=== PATIENT | female | born 1965 | race Caucasian/White ===

== ENCOUNTER → 2016-05-11 | Outpatient (CLI) | payer BC ==
[~2016-05-11] MED LIST: ATOR-22 PO; CHOL2000 PO; GLIM2TAB2 PO; HYDR12.55 PO; LEVO150T9 PO; PRLSR20 PO
[2016-05-12 08:04] LABS: ESTIMATED AVERAGE GLUCOSE 143 mg/dl; HA1C FLAG Normal (Normal)
== END | disposition home or self-care (01) ==
LOC: C.LAB 17:55
PROVIDERS: ATTEND Internal Medicine
DX: E11.9 Type 2 diabetes mellitus without complications (principal)

== ENCOUNTER → 2016-07-16 | Outpatient (CLI) | payer BC ==
[2016-07-16 17:11] LABS: THYROID STIMULATING HORMONE 0.018 uIu/ml (0.300-4.500)
== END | disposition home or self-care (01) ==
LOC: C.LAB1850 15:36
PROVIDERS: ATTEND Internal Medicine Endocrinology, Diabetes & Metabolism
DX: E03.9 Hypothyroidism, unspecified (principal)

== ENCOUNTER → 2016-11-21 | Outpatient (CLI) | payer BC ==
[2016-11-21 12:51] LABS: ALT/SGPT 56 U/L (12-78); AST/SGOT 26 U/L (15-37); BLOOD UREA NITROGEN 10 mg/dl (7-18); BUN/CREATININE RATIO 11.4 (10-20); CALCIUM 9.4 mg/dl (8.5-10.1); CARBON DIOXIDE 25 mmol/L (21-32); CHLORIDE 101 mmol/L (98-107); CHOLESTEROL 154 mg/dl (0-200); CREATININE 0.85 mg/dl (0.60-1.20); GLUCOSE 383 mg/dl (70-99); POTASSIUM 3.8 mmol/L (3.5-5.1); SODIUM 135 mmol/L (136-145); TRIGLYCERIDES 267 mg/dl (0-150); VERY LOW DENSITY LIPOPROT CALC 53 mg/dl
[2016-11-21 12:59] LABS: ALB/GLOB RATIO 0.9 (0.9-2); ALKALINE PHOSPHATASE 178 U/L (45-117); CHOLESTEROL/HDL RATIO 5.1; HDL CHOLESTEROL 30 mg/dl; LDL CHOLESTEROL CALCULATED 71 mg/dl; THYROID STIMULATING HORMONE 0.022 uIu/ml (0.300-4.500)
[2016-11-21 13:01] LABS: BETA-HYDROXYBUTYRATE 1.12 mg/dL (0.2-2.81)
== END | disposition home or self-care (01) ==
LOC: C.LAB 11:18
PROVIDERS: ATTEND Internal Medicine Endocrinology, Diabetes & Metabolism
DX: E55.9 Vitamin D deficiency, unspecified (principal); E78.00 Pure hypercholesterolemia, unspecified; E11.9 Type 2 diabetes mellitus without complications; E03.9 Hypothyroidism, unspecified

== ENCOUNTER → 2016-12-14 | Outpatient (CLI) | payer BC ==
--- NOTE | 2016-12-14 14:30 | DIAGNOSTIC IMAGING REPORT ---
MRI LUMBAR SPINE W/O CONTRAST CLINICAL HISTORY: LUMBAR STENOSIS TECHNIQUE: Sagittal and axial T1, T2 and STIR images were obtained. COMPARISON STUDY: No previous studies for comparison. OBSERVATIONS: The vertebral bodies and posterior elements appear intact. There is no abnormal bony signal present to suggest a marrow replacement process. L1-2: No disc protrusions or extrusions. No evidence of spinal canal or neural foraminal compromise. L2-3: There is a tiny broad-based central disc protrusion. There is no significant spinal or foraminal stenosis L3-4: There is a mild circumferential disc bulge. There is slight flattening of the anterior aspect the thecal sac. Significant spinal stenosis is not felt to be present. There is no foraminal narrowing L4-5: There is a mild circumferential disc bulge. There is mild facet joint arthropathy. There is no significant spinal or foraminal stenosis. L5-S1: There are no focal disc herniations. There is facet joint arthropathy. There is no significant spinal or foraminal stenosis. The conus medullaris and cauda equina appear normal. IMPRESSION: Mild multilevel spondylitic changes. Tiny broad-based central disc protrusion at the L2-3 level. Mild multilevel disc bulges. L4-5 and L5-S1 facet joint arthropathy. Significant spinal or foraminal stenosis is not felt to be present. Electronically signed by: Gavin Catalan M.D. 12/14/2016 2:29 PM Dictated Date/Time: 12/14/2016 2:25 PM
== END | disposition home or self-care (01) ==
LOC: C.MRIBC 13:28
PROVIDERS: ATTEND Pain Medicine Interventional Pain Medicine
DX: M51.86 Other intervertebral disc disorders, lumbar region (principal)

== ENCOUNTER → 2017-04-26 | Outpatient (CLI) | payer OTHER | END | disposition home or self-care (01) | LOC: C.NEUR 14:44 | PROVIDERS: ATTEND Internal Medicine Pulmonary Disease | DX: R23.2 Flushing (principal) ==

== ENCOUNTER → 2017-06-18 | Outpatient (CLI) | payer OTHER ==
--- NOTE | 2017-06-18 12:50 | DIAGNOSTIC IMAGING REPORT ---
THYROID ULTRASOUND CLINICAL HISTORY: HYPOTHYROIDISM COMPARISON STUDY: None. TECHNIQUE: Sonography of the thyroid gland was performed. FINDINGS: The thyroid gland is diminutive and heterogeneous. The right lobe measures 2.6 x 1.1 x 1.1 cm left lobe measures 2.9 x 1.2 x 1.3 cm. Note is made of an 8 mm hypoechoic left isthmus junction nodule. IMPRESSION: 1. Diminutive, heterogeneous thyroid gland. 2. 8 mm hypoechoic left isthmus junction nodule which does not meet criteria for biopsy. Electronically signed by: Cyril Dow M.D. 06/18/2017 12:49 PM Dictated Date/Time: 06/18/2017 12:47 PM
== END | disposition home or self-care (01) ==
LOC: C.ULTR 12:05
PROVIDERS: ATTEND Internal Medicine Endocrinology, Diabetes & Metabolism
DX: E03.9 Hypothyroidism, unspecified (principal)

== ENCOUNTER → 2017-06-29 | Outpatient (CLI) | payer OTHER ==
--- NOTE | 2017-06-29 15:05 | MAMMOGRAPHY REPORT ---
BILATERAL DIGITAL SCREENING MAMMOGRAM TOMOSYNTHESIS WITH CAD: 06/29/2017 CLINICAL HISTORY: Routine screening. Patient has no complaints. TECHNIQUE: Breast tomosynthesis in addition to standard 2D mammography was performed. Current study was also evaluated with a Computer Aided Detection (CAD) system. COMPARISON: Comparison is made to exams dated: 11/27/2015 mammogram, 11/21/2014 mammogram, 05/18/2014 m ammogram, 11/13/2013 mammogram, 11/13/2013 ultrasound, and 10/26/2013 mammogram - [facility]. BREAST COMPOSITION: There are scattered areas of fibroglandular density in both breasts. FINDINGS: There are a few scattered benign-appearing calcifications. No suspicious mass, architectur al distortion or cluster of microcalcifications is seen. IMPRESSION: ACR BI-RADS CATEGORY 1: NEGATIVE There is no mammographic evidence of malignancy. A 1 year screening mammogram is recommended. The pa tient will receive written notification of the results. Approximately 10% of breast cancers are not detected with mammography. A negative mammographic report should not delay biopsy if a clinically suggestive mass is present. Marcela Field M.D. ay/:06/29/2017 08:49:10 Flat Examiner: Chan Meeks, M, [facility] letter sent: Normal 1/2 BI-RADS Code: ACR BI-RADS Category 1: Negative
== END | disposition home or self-care (01) ==
LOC: C.MAMM 07:10
PROVIDERS: ATTEND Family Medicine
DX: Z12.31 Encounter for screening mammogram for malignant neoplasm of breast (principal)

== ENCOUNTER 2019-03-13 04:48 | Inpatient (IN) ==
--- NOTE | 2019-02-10 09:39 | PAT Medication Instructions ---
Medication Instructions Date of Service February 10, 2019 Home Medications Medication Instructions Recorded omeprazole 20 mg capsule,delayed 20 mg PO BID #180 cap 10/25/18 release omeprazole 20 mg capsule,delayed release 20 mg PO BID cholecalciferol (vitamin D3) 5,000 unit capsule 5,000 units PO QAM cyanocobalamin (vitamin B-12) 500 mcg disintegrating tablet,sublingual 500 mcg SL QAM dulaglutide 1.5 mg/0.5 mL subcutaneous pen injector 1.5 mg SUBCUT WEEKLY levothyroxine 125 mcg tablet 125 mcg PO QAM omega-3 acid ethyl esters 1 gram capsule 1 cap PO DAILY atorvastatin 20 mg PO HS conjugated estrogens [Premarin] 0.625 mg PO QAM hydrochlorothiazide 12.5 mg PO QAM meclizine 12.5 mg PO UD PRN metformin 1,000 mg PO BID Continue as directed dulaglutide 1.5 mg/0.5 mL subcutaneous pen injector 1.5 mg SUBCUT WEEKLY ASK your prescriber and surgeon conjugated estrogens [Premarin] 0.625 mg PO QAM STOP taking 2 weeks before surgery (or as soon as possible if surgery is within 2 weeks) omega-3 acid ethyl esters 1 gram capsule 1 cap PO DAILY DO NOT take the morning of surgery cholecalciferol (vitamin D3) 5,000 unit capsule 5,000 units PO QAM cyanocobalamin (vitamin B-12) 500 mcg disintegrating tablet,sublingual 500 mcg SL QAM hydrochlorothiazide 12.5 mg PO QAM metformin 1,000 mg PO BID Take morning of surgery With a small sip of water, OTHERWISE NOTHING TO EAT OR DRINK AFTER MIDNIGHT: omeprazole 20 mg capsule,delayed release 20 mg PO BID levothyroxine 125 mcg tablet 125 mcg PO QAM meclizine 12.5 mg PO UD PRN (if needed) Take evening before surgery omeprazole 20 mg capsule,delayed release 20 mg PO BID atorvastatin 20 mg PO HS meclizine 12.5 mg PO UD PRN (if needed) metformin 1,000 mg PO BID Other Notes If you have any questions please call us at [phone] or [phone] or [phone] or [phone]
--- NOTE | 2019-02-13 09:22 | Anesthesiology Consultation ---
Date of Service February 13, 2019 Assessment & Plan (1) Encounter for pre-operative examination: - Awaiting review of preop testing (labs, EKG, CXR). - Check BSG AM DOS Chart Review Chart Review: Patient seen in Pre Admission Testing Teaching & Discussion Pre-Anesthesia Teaching/Discussion Notes: Instructed NPO after midnight before surgery,except medications with 15 cc of water. Medication instructions provided according to the PAT guidelines. History Surgery Operation Date: 03/13/19 09:40 Proposed Procedures p Left Total Hip Arthroplasty - Jonathan Coello Height/Weight Height: 5 ft 8 in Weight: 104 kg Allergies Allergy/AdvReac Type Severity Reaction Status Date / Time Penicillins Allergy Intermediate RASH Verified 02/03/19 09:46 Medications Home Medications Medication Instructions Recorded Confirmed Last Taken omeprazole 20 mg capsule,delayed 20 mg PO BID #180 cap 10/25/18 02/03/19 02/03/19 release cholecalciferol (vitamin D3) 5,000 5,000 units PO QAM cap 11/16/18 02/03/19 Unknown unit capsule cyanocobalamin (vitamin B-12) 500 500 mcg SL QAM tab 11/16/18 02/03/19 02/03/19 mcg disintegrating tablet,sublingual dulaglutide 1.5 mg/0.5 mL 1.5 mg SUBCUT WEEKLY #1 ml 11/16/18 02/03/19 Unknown subcutaneous pen injector levothyroxine 125 mcg tablet 125 mcg PO QAM #90 tab 11/16/18 02/03/19 02/03/19 omega-3 acid ethyl esters 1 gram 1 cap PO DAILY #90 cap 11/16/18 02/03/19 Unknown capsule atorvastatin 20 mg PO HS 02/03/19 02/03/19 02/02/19 conjugated estrogens [Premarin] 0.625 mg PO QAM 02/03/19 02/03/19 02/03/19 hydrochlorothiazide 12.5 mg PO QAM 02/03/19 02/03/19 02/03/19 meclizine 12.5 mg PO UD PRN 02/03/19 02/03/19 Unknown metformin 1,000 mg PO BID 02/03/19 02/03/19 02/03/19 Past Medical History Medical History Acid reflux controlled Diabetes NIDDM (oral + injectable) Hypercholesterolemia (Chronic) Hypothyroidism (Inactive) Obesity Osteoarthrosis (Acute) Sleep apnea (Acute) "mild"/no device Thyroid nodule (Acute) under surveillance Exercise / Class Metabolic Activity III < 4 Walking/Shop/Light housework Past Family History Family History Brother Myocardial infarction, Onset Age: 37 at age 37 Mother Myocardial infarction Grandfather (Maternal) Myocardial infarction Aunt Myocardial infarction Uncle Myocardial infarction Past Surgical History Surgical History History of bladder surgery TAC WITH MESH History of colonoscopy History of left knee surgery History of partial hysterectomy OVARIES REMAIN History of tonsillectomy History of total right hip replacement Past Anesthesia History No Hx of Anesthesia Complications and No Family Hx of Anesthesia Complications History of PONV No Hx of PONV and No Hx of Motion Sickness Social History Smoking Status: Former smoker Do You Dip or Chew Tobacco: No Smoking End Date: QUIT 10 YR AGO Hx Alcohol Use: Yes alcohol intake frequency: holidays/special occasions only Hx Substance Use: No substance use type: does not use Review of Systems Patient denies chest pain, shortness of breath, dyspnea on exertion, joint pain, reflux, cough, wheezing, palpitations. Physical Exam Vital Signs VITALS BP 135/89 P 99 TEMP 98.6 SP02 95%RA RESP 16 PHYSICAL Full neck and c-spine range of motion. Full TMJ range of motion. TMD 3 finger breaths Mallampati Score 3 Dentition: intact, crowns several on molars Lungs: clear throughout to auscultation Cardiac: regular rate and rhythm, no murmurs noted Spine: normal Carotid arteries: negative bruit Extremities: no edema Testing Laboratory Results 11/14/18 HGBA1C 5.4%
[2019-02-13 10:01] LABS: Basophils # (auto) 0.01 K/uL (0-0.2); Basophils % (auto) 0.2 %; Eosinophils # (auto) 0.05 K/uL (0-0.5); Eosinophils % (auto) 0.8 %; Hemoglobin 13.3 g/dL (12.0-16.0); Immature Granulocytes # (auto) 0.01 K/uL (0.00-0.02); Immature Granulocytes % (auto) 0.2 %; Lymphocytes # (auto) 1.77 K/uL (1.2-3.4); Lymphocytes % (auto) 27.7 %; Mean Corpuscular Hemoglobin 30.4 pg (25-34); Mean Corpuscular Hgb Conc 33.3 g/dL (32-36); Mean Corpuscular Volume 91.5 fL (80-100); Mean Platelet Volume 9.5 fL (7.4-10.4); Monocytes # (auto) 0.43 K/uL (0.11-0.59); Monocytes % (auto) 6.7 %; Neutrophils # (auto) 4.13 K/uL (1.4-6.5); Neutrophils % (auto) 64.4 %; Platelet Count 321 K/uL (130-400); RDW Coefficient of Variation 14.4 % (11.5-14.5); RDW Standard Deviation 48.7 fL (36.4-46.3); Red Blood Count 4.37 M/uL (4.2-5.4)
[2019-02-13 10:03] LABS: Appearance Urine Clear (Clear); Bilirubin Urine Negative (Negative); Blood Urine Negative (Negative); Color Urine Yellow; Glucose Urine UA Negative (Negative); Ketones Urine Negative (Negative); Leukocyte Esterase Urine Negative (Negative); Nitrite Urine Negative (Negative); Protein Urine Negative (Negative); Specific Gravity Urine 1.008 (1.000-1.030); Urobilinogen Urine Negative (Negative); pH Urine 5.5 (4.5-7.5)
[2019-02-13 10:14] LABS: INR 0.9 (0.9-1.1); Partial Thromboplastin Ratio 0.9; Partial Thromboplastin Time 23.5 Seconds (21.0-31.0); Prothrombin Time 9.6 Seconds (9.0-12.0)
--- NOTE | 2019-02-13 10:39 | XRay Report ---
XR chest Pre-admission PA/Lat CLINICAL HISTORY: pat preoperative evaluation COMPARISON STUDY: 07/13/2013 FINDINGS: The bones soft tissues and hemidiaphragms are normal. The cardiomediastinal silhouette is n ormal. The lungs are clear. The pulmonary vasculature is normal. IMPRESSION: Negative chest. ACT 112: Negative or not required by law. The above report was generated using voice recognition software. It may contain grammatical, syntax or spelling errors. Electronically signed by: Aguila Jimenez M.D. 02/13/2019 10:38 AM
[2019-02-13 10:56] LABS: BUN Creatinine Ratio 14.3 (10-20); Calcium 10.1 mg/dl (8.5-10.1); Creatinine Clr Calc Pharmacy 89.2 ml/min; Est GFR (African American) 82.9; Est GFR (Non-African American) 71.5; Potassium 3.4 mmol/L (3.5-5.1)
[2019-02-13 10:59] LABS: Albumin Globulin Ratio 0.9 (0.9-2); Bilirubin,Total 0.2 mg/dl (0.2-1); Globulin 4.4 gm/dl (2.5-4.0); Total Protein 8.4 gm/dl (6.4-8.2)
--- NOTE | 2019-03-10 13:21 | History & Physical Report ---
Date of Service March 10, 2019 Assessment & Plan (1) Degenerative joint disease of left hip: Pt will be admitted same day, undergo left danielle. Plans on home dc next day and home pt History of Present Illness Chief Complaint: left hip pain Primary Care Provider: Shawn Esparza MD pleasant female with complaints of left hip pain for about 2 years. limping constantly, has tried nsaids and therapy without relief. Allergies Allergy/AdvReac Type Severity Reaction Status Date / Time Penicillins Allergy Intermediate RASH Verified 02/17/19 09:56 Home Medications Home Medications Medication Instructions Recorded Confirmed Type omeprazole 20 mg capsule,delayed 20 mg PO BID #180 cap 10/25/18 02/17/19 Rx release cholecalciferol (vitamin D3) 125 5,000 units PO QAM cap 11/16/18 02/17/19 History mcg (5,000 unit) capsule cyanocobalamin (vitamin B-12) 500 500 mcg SL QAM tab 11/16/18 02/17/19 History mcg disintegrating tablet,sublingual dulaglutide 1.5 mg/0.5 mL 1.5 mg SUBCUT WEEKLY #1 ml 11/16/18 02/17/19 History subcutaneous pen injector levothyroxine 125 mcg tablet 125 mcg PO QAM #90 tab 11/16/18 02/17/19 History omega-3 acid ethyl esters 1 gram 1 cap PO DAILY #90 cap 11/16/18 02/17/19 History capsule atorvastatin 20 mg PO HS 02/03/19 02/17/19 History conjugated estrogens [Premarin] 0.625 mg PO QAM 02/03/19 02/17/19 History hydrochlorothiazide 12.5 mg PO QAM 02/03/19 02/17/19 History meclizine 12.5 mg PO UD PRN 02/03/19 02/17/19 History metformin 1,000 mg PO BID 02/03/19 02/17/19 History Past Med/Surg History Medical History Acid reflux controlled Diabetes NIDDM (oral + injectable) Hypercholesterolemia (Chronic) Hypothyroidism (Inactive) Obesity Osteoarthrosis (Acute) Sleep apnea (Acute) "mild"/no device Thyroid nodule (Acute) under surveillance Surgical History History of bladder surgery TAC WITH MESH History of colonoscopy History of left knee surgery History of partial hysterectomy OVARIES REMAIN History of tonsillectomy History of total right hip replacement Family History Brother Myocardial infarction, Onset Age: 37 at age 37 Mother Myocardial infarction Grandfather (Maternal) Myocardial infarction Aunt Myocardial infarction Uncle Myocardial infarction Social History (Updated 11/18/18 @ 15:24 by Marcelina Garg) Preferred Language: Jamaican Communication Ability: Effective Vp Public Relations Required: No Beliefs That Will Affect Care: None marital status: Single Current Living Situation: Significant Other current occupational status: employed Other Information That Helps Us Care for You: No Feels Safe at Home: Yes Smoking Status: Former smoker Age Quit Using Tobacco: 43 ; Do You Dip or Chew Tobacco: No ; Smoking End Date: QUIT 10 YR AGO ; Second Hand Exposure: No ; Hx Alcohol Use: Yes Alcohol Intake Frequency: Rarely Hx Substance Use: No Dental Care, Regularly: Yes Physical Activity Frequency: Does not Exercise Seatbelt Use: always Sunscreen Use: Yes Review of Systems All systems reviewed & are unremarkable except as noted in HPI & below Physical Exam Constitutional: WD/WN, vitals as above Neck: trachea midline, no thyromegaly Respiratory: normal respiratory effort, lungs clear to auscultation Cardiovascular: RRR, no murmur, no edema Gastrointestinal (Abdomen): normal bowel sounds, soft, nontender, no hepatosplenomegaly Musculoskeletal: Hip: + limited ROM of hip and + hip ROM with crepitation
[2019-03-13] MEDS ORDERED: CeleBREX 200 MG CAP PO SCH (06:00)
[2019-03-13] MEDS ORDERED: FAMOTIDINE 20 MG TAB PO SCH (06:00)
[2019-03-13] MEDS ORDERED: TRANEXAMIC ACID 1,000 MG **IV Intra-op IV SCH (06:00)
[2019-03-13] MEDS ORDERED: dexAMETHasone 4 MG TAB PO SCH (06:00)
[2019-03-13] MEDS ORDERED: CEFAZOLIN 2000MG 2,000 MG/15 ML SYR IV SCH (06:00)
[2019-03-13] MEDS ORDERED: LR 60ML/HR IV SCH (06:00)
[2019-03-13] MEDS ORDERED: ACETAMINOPHEN 500 MG TAB PO SCH (06:00)
[2019-03-13] MEDS ORDERED: TRANEXAMIC ACID 1,000 MG **IV Pre-op IV SCH (06:00)
[2019-03-13] MEDS ORDERED: SODIUM CHLORIDE 0.9% 1,000 ML IV SCH (06:00)
[2019-03-13] MEDS ORDERED: METOCLOPRAMIDE HCL 10 MG TABLET PO SCH (06:00)
[2019-03-13] MEDS ORDERED: LR 500ML BOLUS, THEN 15ML/HR IV SCH (06:00)
[2019-03-13] MEDS ORDERED: fentaNYL citrate 100 MCG/2 ML VIAL ONE (06:29)
[2019-03-13] MEDS ORDERED: MIDAZOLAM HCL 1 MG/ML 2ML VIAL ONE (06:29)
[2019-03-13] MEDS ORDERED: BACITRACIN INJ 50,000 UNIT VIAL ONE (06:31)
[2019-03-13] MEDS ORDERED: ORTHO JOINT ANESTHETIC ONE (06:31)
[2019-03-13] MEDS ORDERED: BUPIVACAINE 0.5 % 5 MG/1 ML PF 10ML VIAL ONE (06:33)
[2019-03-13] MEDS ORDERED: CeleBREX 200 MG CAP ONE (06:42)
--- NOTE | 2019-03-13 06:45 | History & Physical Bridge Note ---
Date of Service March 13, 2019 History & Physical Bridge Note I have examined the patient, reviewed the History & Physical and in the interval since the performance of the History & Physical I have noted the following changes of clinical significance: no changes noted
[2019-03-13] MEDS ORDERED: ONDANSETRON INJ 2 MG/ML 2 ML VIAL IV PRN ×2 (07:00→09:13)
[2019-03-13] MEDS ORDERED: KETOROLAC 30 MG/ML VIAL IV PRN (07:00)
[2019-03-13] MEDS ORDERED: ATROPINE SULFATE 0.1 MG/ML 10ML SYR IV PRN (07:00)
[2019-03-13] MEDS ORDERED: HYDROmorphone INJ 1 MG/ML SYRINGE IV PRN (07:00)
[2019-03-13] MEDS ORDERED: ePHEDrine sulfate 50 MG/ML AMP IV PRN (07:00)
[2019-03-13] MEDS ORDERED: PROPOFOL IV EMULSION 10 MG/ML 20 ML VIAL IV ONE ×2 (07:11→07:18)
[2019-03-13] MEDS: ROPIVACAINE 0.5% HCL/PF 150 MG, BUPIVACAINE 0.5% MPF 30 ML, EPINEPHrine 30MG/30ML (OR U... INSTIL SCH ×2 (07:40→08:08)
--- NOTE | 2019-03-13 08:01 | Operative Report ---
Post Operative Report Pre & Post Diagnosis Operation Date: 03/13/19 07:00 Pre-Op Diagnosis: Left Hip Degnerative Joint Disease Post-Op Diagnosis: Left Hip Degnerative Joint Disease I identified the patient and participated in the time-out.: Yes Procedure Operation Date: 03/13/19 07:00 Actual Procedures p Left Total Hip Arthroplasty--Uncemented(Left) - Jonathan Coello Surgeon Jonathan Coello Deputy Sheriff Custody Salvador Cardona PA-C Estimated Blood Loss 30 Findings Consistent with Post-Op Diagnosis Specimens None Complications none Disposition Disposition: Recovery Room Description of Procedure IMPLANTS USED: Dickinson size 56 mm Trident 2 Tritanium acetabular cup, 1 acetabular screw, a 36 mm X3 elevated liner, a #4 Accolade 2 stem with a 127 neck, 36 mm +2.5 mm ceramic head. INDICATIONS: Mrs. Elizalde is a pleasant female who has unfortunately failed all forms of conservative measures. Therefore, they have has decided to undergo elective surgical intervention. All risks and benefits of the surgery were discussed with the patient and the family in entirety. PROCEDURE: The patient was brought to the operating room and properly identified by myself, anesthesia, and staff. Patient was given a spinal anesthetic and placed on the operating table with the left hip up. The hip was then prepped and draped in the standard orthopedic fashion. We made a standard posterolateral approach over the greater trochanteric area. We then dissected down to subcutaneous tissue until the fascia was identified. We incised the fascia in line with the skin incision. We then split the gluteus pinky muscles with finger dissection. We then put the Charnley retractor in place. We placed the retractor underneath the gluteus medius to expose the piriformis. The piriformis was then tagged with a tag suture and released from the insertion from the greater trochanteric area with the use of electrocautery. We then performed a T capsulotomy and the femoral head and neck were atraumatically dislocated. We then performed femoral neck osteotomy at the pre-template site. We removed the femoral head and neck without difficulty. We then placed the retractor around the acetabulum. We then began to ream the acetabulum to the appropriate size. We then impacted the cup into place and had a very good fixation within the pelvis. We then put the liner in place as well. Then using multiple size approaches from the Accolade 2 system a size ##4 fit very nicely in the proximal femur. I then put trial components in place. WE had very good range of motion, excellent stability, and excellent leg length equality. We removed the trial components and irrigated the wound. We then impacted the components in place and irrigated the wound once more. We then closed the capsule and fascia with a 0 Vicryl suture, the deep dermis with 2-0 Vicryl suture, and finally the skin with a running 3-0 Vicryl subcuticular stitch. A sterile dressing was applied. The patient was taken to the recovery room in stable condition. Due to the complex nature of the procedure, the entire surgery was performed with the operational assistance of Salvador Cardona PA-C. The health care legal assistant was under direct supervision, was involved in the actual performance of all aspects of the surgical procedure including hemostasis, tissue retraction and incision, instrument management, patient positioning, and wound closure. I attest to the content of the Intraoperative Record and any orders documented therein. Any exceptions are noted below.
--- NOTE | 2019-03-13 08:35 | Anesthesiology Progress Note ---
Date of Service March 13, 2019 Anesthesia Post Procedure Vital Signs Vital Signs: Temp Pulse Pulse Resp BP BP Pulse Ox 03/13/19 08:30 76 15 97/74 L 96 03/13/19 08:21 36.4 C L 87 12 108/65 97 03/13/19 05:19 36.7 C 84 20 147/86 H 97 Pain Intensity Left Finger: Pain Intensity: 5 Transfer of Care Handoff Completed per policy Notes Mental Status: alert / awake / arousable Patient Amnestic to Procedure: Yes Nausea / Vomiting: adequately controlled Pain: adequately controlled Airway Patency, RR, SpO2: stable & adequate BP & HR: stable & adequate Hydration State: stable & adequate Neuraxial Anesthesia: was administered and sensory block is resolving Anesthetic Complications: no major complications apparent
[2019-03-13] MEDS ORDERED: MECLIZINE 12.5 MG TAB PO PRN (09:13)
[2019-03-13] MEDS ORDERED: NALOXONE HCL 0.4 MG/1 ML VIAL/CARP IV PRN (09:13)
[2019-03-13] MEDS ORDERED: METOCLOPRAMIDE HCL INJ 5 MG/ML 2 ML VIAL IV PRN (09:13)
[2019-03-13] MEDS ORDERED: bisacodyL 10 MG SUPP PR PRN (09:13)
[2019-03-13] MEDS ORDERED: MAGNESIUM HYDROXIDE SUSP 30 ML UDC PO PRN (09:13)
[2019-03-13] MEDS: ASPIRIN 81 MG ECTAB PO SCH ×2 (10:16→21:18)
[2019-03-13] MEDS: METFORMIN HCL ER 500 MG TABCR PO SCH ×2 (10:16→21:18)
[2019-03-13] MEDS: DOCUSATE SODIUM 100 MG CAP PO SCH ×2 (10:17→21:18)
[2019-03-13] MEDS: hydroCHLOROthiazide 25 MG TAB PO SCH (10:17)
[2019-03-13] MEDS: MULTIVITAMIN TAB PO SCH (10:17)
[2019-03-13] MEDS: LEVOTHYROXINE SODIUM 125 MCG TABLET PO SCH (10:17)
[2019-03-13] MEDS: SODIUM CHLORIDE 0.9% 1000ML 1,000 ML IV SCH ×2 (10:17→20:14)
[2019-03-13] MEDS: TRAMADOL HCL 50 MG TABLET PO PRN ×3 (11:43→19:35)
[2019-03-13] MEDS: ACETAMINOPHEN 500 MG TAB PO SCH ×2 (14:06→21:19)
[2019-03-13] MEDS ORDERED: TRANEXAMIC ACID / 0.7% NACL 1,000 MG/100 ML BAG IV SCH (15:00)
[2019-03-13] MEDS: CEFAZOLIN 2000MG 2,000 MG/15 ML SYR IV SCH (18:43)
[2019-03-13] MEDS ORDERED: SENNA 8.6 MG TAB PO SCH (21:00)
[2019-03-13] MEDS ORDERED: ATORVASTATIN 20 MG TAB PO SCH (21:00)
[2019-03-13] MEDS: OXYCODONE HCL IR 5 MG TAB (IMMEDIATE RELEASE) PO PRN (22:35)
[2019-03-14] MEDS: CEFAZOLIN 2000MG 2,000 MG/15 ML SYR IV SCH (03:11)
[2019-03-14] MEDS: SODIUM CHLORIDE 0.9% 1000ML 1,000 ML IV SCH (03:15)
[2019-03-14] MEDS: ACETAMINOPHEN 500 MG TAB PO SCH (05:13)
[2019-03-14] MEDS: LEVOTHYROXINE SODIUM 125 MCG TABLET PO SCH (05:13)
[2019-03-14 05:41] LABS: Hematocrit (blood only) 30.6 % (37-47); Hemoglobin 9.9 g/dL (12.0-16.0); Immature Granulocytes # (auto) 0.03 K/uL (0.00-0.02); Immature Granulocytes % (auto) 0.3 %; Lymphocytes # (auto) 0.89 K/uL (1.2-3.4); Mean Corpuscular Hemoglobin 30.1 pg (25-34); Mean Corpuscular Hgb Conc 32.4 g/dL (32-36); Mean Platelet Volume 9.8 fL (7.4-10.4); Monocytes # (auto) 0.65 K/uL (0.11-0.59); Monocytes % (auto) 7.3 %; Neutrophils % (auto) 82.4 %; Platelet Count 290 K/uL (130-400); RDW Coefficient of Variation 14.2 % (11.5-14.5); Red Blood Count 3.29 M/uL (4.2-5.4); White Blood Count 8.87 K/uL (4.8-10.8)
[2019-03-14 06:11] LABS: BUN Creatinine Ratio 13.2 (10-20); Calcium 8.5 mg/dl (8.5-10.1); Est GFR (African American) 99.2; Est GFR (Non-African American) 85.6; Potassium 3.9 mmol/L (3.5-5.1)
[2019-03-14] MEDS: OXYCODONE HCL IR 5 MG TAB (IMMEDIATE RELEASE) PO PRN (07:26)
[2019-03-14] MEDS ORDERED: dexAMETHasone 10 MG in SYRINGE 0 ML IV SCH (08:00)
--- NOTE | 2019-03-14 08:06 | Anesthesiology Progress Note ---
Date of Service March 14, 2019 Anesthesia Post Procedure Vital Signs Vital Signs: Temp Pulse Pulse Resp BP Pulse Ox 03/14/19 03:05 36.7 C 78 16 129/71 96 03/13/19 23:00 36.5 C 77 18 138/86 94 03/13/19 19:05 36.6 C 87 18 140/84 95 03/13/19 15:28 36.7 C 18 121/82 94 03/13/19 12:00 78 18 139/90 03/13/19 10:55 71 16 145/92 H 96 03/13/19 10:04 36.9 C 69 18 136/89 96 03/13/19 09:28 71 18 139/88 03/13/19 08:55 36.3 C L 73 16 119/82 99 03/13/19 08:40 36.6 C 76 16 128/83 97 03/13/19 08:30 76 15 97/74 L 96 03/13/19 08:21 36.4 C L 87 12 108/65 97 Notes Mental Status: alert / awake / arousable Nausea / Vomiting: adequately controlled Pain: adequately controlled Airway Patency, RR, SpO2: stable & adequate BP & HR: stable & adequate Hydration State: stable & adequate Neuraxial Anesthesia: was administered and sensory block resolved Anesthetic Complications: no major complications apparent and Pt Satisfied with anesthetic care
--- NOTE | 2019-03-14 08:13 | Orthopedic Progress Note ---
Date of Service March 14, 2019 Assessment & Plan (1) Degenerative joint disease of left hip: Postop day 1 status post left total hip arthroplasty PT/OT protocols. Weightbearing as tolerated. DVT prophylaxis with aspirin, SCDs. Pain management as written. DC planning-Home health services upon discharge. Subjective Postop day 1 Patient is currently sitting in her chair at the bedside. She has no complaints this morning other than some general soreness that she usually feels in the operative extremity. He denies any shortness of breath, chest pain, lightheadedness. She feels that her pain is controlled. Physical Exam Physical Exam: [place] dressings are clean, dry, and intact. Calves are soft and nontender. Neurovascular is intact. She has good dorsiflexion and plantarflexion of the left foot. Hip is located. Hemovac drainage is 60 cc from the previous shift Results & Data ([facility]) Vital Signs (Past 12 Hours) Vital Signs Temp Pulse Resp BP Pulse Ox 03/14/19 03:05 36.7 C 78 16 129/71 96 03/13/19 23:00 36.5 C 77 18 138/86 94 Laboratory Results Laboratory Results WBC 8.87 K/uL (4.8-10.8) 03/14/19 04:57 RBC 3.29 M/uL (4.2-5.4) L 03/14/19 04:57 Hgb 9.9 g/dL (12.0-16.0) L 03/14/19 04:57 Hct 30.6 % (37-47) L 03/14/19 04:57 MCV 93.0 fL (80-100) 03/14/19 04:57 MCH 30.1 pg (25-34) 03/14/19 04:57 MCHC 32.4 g/dL (32-36) 03/14/19 04:57 RDW Std Deviation 48.0 fL (36.4-46.3) H 03/14/19 04:57 RDW Coeff of Sada 14.2 % (11.5-14.5) 03/14/19 04:57 Plt Count 290 K/uL (130-400) 03/14/19 04:57 MPV 9.8 fL (7.4-10.4) 03/14/19 04:57 Immature Gran % (Auto) 0.3 % 03/14/19 04:57 Neut % (Auto) 82.4 % 03/14/19 04:57 Lymph % (Auto) 10.0 % 03/14/19 04:57 [place] % (Auto) 7.3 % 03/14/19 04:57 Eos % (Auto) 0.0 % 03/14/19 04:57 Baso % (Auto) 0.0 % 03/14/19 04:57 Immature Gran # (Auto) 0.03 K/uL (0.00-0.02) H 03/14/19 04:57 Neut # (Auto) 7.30 K/uL (1.4-6.5) H 03/14/19 04:57 Lymph # (Auto) 0.89 K/uL (1.2-3.4) L 03/14/19 04:57 [place] # (Auto) 0.65 K/uL (0.11-0.59) H 03/14/19 04:57 Eos # (Auto) 0.00 K/uL (0-0.5) 03/14/19 04:57 Baso # (Auto) 0.00 K/uL (0-0.2) 03/14/19 04:57 PT 9.6 Seconds (9.0-12.0) 02/13/19 09:43 INR 0.9 (0.9-1.1) 02/13/19 09:43 APTT 23.5 Seconds (21.0-31.0) 02/13/19 09:43 PTT Ratio 0.9 02/13/19 09:43 Sodium 136 mmol/L (136-145) 03/14/19 04:57 Potassium 3.9 mmol/L (3.5-5.1) 03/14/19 04:57 Chloride 105 mmol/L (98-107) 03/14/19 04:57 Carbon Dioxide 25 mmol/L (21-32) 03/14/19 04:57 Anion Gap 7.0 (3-11) 03/14/19 04:57 BUN 10 mg/dl (7-18) 03/14/19 04:57 Creatinine 0.78 mg/dl (0.6-1.2) 03/14/19 04:57 Est Cr Clr Drug Dosing 103.0 ml/min 03/14/19 04:57 Est GFR ( Amer) 99.2 03/14/19 04:57 Est GFR (Non-Af Amer) 85.6 03/14/19 04:57 BUN/Creatinine Ratio 13.2 (10-20) 03/14/19 04:57 Glucose 123 mg/dl (70-99) H 03/14/19 04:57 POC Glucose 131 mg/dl (70-99) H 03/13/19 12:14 Calcium 8.5 mg/dl (8.5-10.1) 03/14/19 04:57 Total Bilirubin 0.2 mg/dl (0.2-1) 02/13/19 09:43 AST 33 U/L (15-37) 02/13/19 09:43 ALT 54 U/L (12-78) 02/13/19 09:43 Alkaline Phosphatase 133 U/L (45-117) H 02/13/19 09:43 Total Protein 8.4 gm/dl (6.4-8.2) H 02/13/19 09:43 Albumin 4.0 gm/dl (3.4-5.0) 02/13/19 09:43 Globulin 4.4 gm/dl (2.5-4.0) H 02/13/19 09:43 Albumin/Globulin Ratio 0.9 (0.9-2) 02/13/19 09:43 Urine Color Yellow 02/13/19 09:43 Urine Appearance Clear (Clear) 02/13/19 09:43 Urine pH 5.5 (4.5-7.5) 02/13/19 09:43 Ur Specific [place] 1.008 (1.000-1.030) 02/13/19 09:43 Urine Protein Negative (Negative) 02/13/19 09:43 Urine Glucose (UA) Negative (Negative) 02/13/19 09:43 Urine Ketones Negative (Negative) 02/13/19 09:43 Urine Blood Negative (Negative) 02/13/19 09:43 Urine Nitrite Negative (Negative) 02/13/19 09:43 Urine Bilirubin Negative (Negative) 02/13/19 09:43 Urine Urobilinogen Negative (Negative) 02/13/19 09:43 Ur Leukocyte Esterase Negative (Negative) 02/13/19 09:43 Nasal Screen MRSA (PCR) Negative (Negative) 02/13/19 09:43 Blood Type O Positive 02/13/19 09:43 Antibody Screen NEGATIVE 02/13/19 09:43
[2019-03-14] MEDS: ASPIRIN 81 MG ECTAB PO SCH (08:44)
[2019-03-14] MEDS: MULTIVITAMIN TAB PO SCH (08:44)
[2019-03-14] MEDS: DOCUSATE SODIUM 100 MG CAP PO SCH (08:44)
[2019-03-14] MEDS: hydroCHLOROthiazide 25 MG TAB PO SCH (08:44)
[2019-03-14] MEDS: METFORMIN HCL ER 500 MG TABCR PO SCH (08:44)
--- NOTE | 2019-03-14 12:59 | Discharge Summary ---
Date of Service March 14, 2019 Admission HPI Per Admitting Provider krystal female with complaints of left hip pain for about 2 years. limping constantly, has tried nsaids and therapy without relief. Admission Exam Per Admitting Provider Constitutional: WD/WN, vitals as above Neck: trachea midline, no thyromegaly Respiratory: normal respiratory effort, lungs clear to auscultation Cardiovascular: RRR, no murmur, no edema Gastrointestinal (Abdomen): normal bowel sounds, soft, nontender, no hepatosplenomegaly Musculoskeletal: Hip: + limited ROM of hip and + hip ROM with crepitation Principal Diagnosis Left hip osteoarthritis Discharge Data Allergies Allergy/AdvReac Type Severity Reaction Status Date / Time Penicillins Allergy Intermediate RASH Verified 03/13/19 05:15 Consultations 03/14/19 08:00 Consult Case Management - Discharge Planning Routine Procedures Performed Operation Date: 03/13/19 07:00 Actual Procedures p Left Total Hip Arthroplasty--Uncemented(Left) - [facility] [place] Course (1) Degenerative joint disease of left hip: Postop day 1 status post left total hip arthroplasty PT/OT protocols. Weightbearing as tolerated. DVT prophylaxis with aspirin, SCDs. Pain management as written. DC planning-Home health services upon discharge. Patient continued to progress with physical therapy and remained stable. Vital signs are stable. Patient was thusly discharged home. Total Time Total Time Spent Total Time Spent (In Minutes): 5 Discharge Plan Discharge Items Patient Disposition: Home - Home Health Services Reason For Visit: Left Hip Osteoarthritis Discharge Diagnosis: LEFT HIP OSTEOARTHRITIS Activity: Per Instructions section Non-emergency contact: Surgeon Call non-emergency contact if: your pain is not controlled, your temperature is above 101.5, your wound has increased redness and your wound has increased drainage Follow-up/Referrals: Shawn Esparza III, MD [Primary Care Provider] - Diet: Regular Addtl Attending Provider Instructions: PLEASE FOLLOW DR COELLO'S TOTAL HIP ARTHROPLASTY INSTRUCTIONS WRITTEN. THESE WILL BE GIVEN TO YOU AT THE TIME OF DISCHARGE. FOLLOW UP WITH DR COELLO IN 2 WEEKS. PLEASE CALL FOR AN APPOINTMENT IF ONE HAS NOT BEEN SCHEDULED. [phone] You will be going home with her drain in. This will be removed by home health services. Your pain medications have already been sent to your pharmacy by Dr. Coello's office. Silverlon- This is a large adhesive bandage that contains silver ions. This helps your incision heal by fighting off bacteria and protecting it from the outside environment. You are permitted to shower with this dressing. This will remain on your incision for 7 days and then should be removed. Some visible blood or drainage through the dressing window is normal. If there is significant drainage or leaking noted before the 7 days notify your doctor's office immediately. Once removed, keep incision clean and dry. If there is any drainage or redness noted, please call your surgeon. Pending Studies at Discharge: Yes Studies:: PATHOLOGY REPORT Stand-Alone Forms: My [facility], Opioid Pain Management, Smoking Cessation Medications and DC Order Prescriptions: New sennosides [Senokot] 8.6 mg Tablet 17.2 mg PO HS PRN (Reason: constipation) Qty: 30 RF: 0 aspirin [Ecotrin Low Strength] 81 mg Tablet,Delayed Release (Dr/Ec) 81 mg PO BID 30 Days Qty: 60 RF: 0 acetaminophen 500 mg Tablet 1,000 mg PO Q8 14 Days Qty: 84 RF: 0 cefadroxil 500 mg capsule 500 mg PO BID Qty: 28 RF: 1 Continued omeprazole 20 mg capsule,delayed release(DR/EC) 20 mg PO BID Qty: 180 RF: 3 levothyroxine 125 mcg tablet 125 mcg PO QAM Qty: 90 RF: 0 cyanocobalamin (vitamin B-12) 500 mcg tablet,disintegrating 500 mcg SL QAM RF: 0 cholecalciferol (vitamin D3) 5,000 unit capsule 5,000 units PO QAM RF: 0 dulaglutide 1.5 mg/0.5 mL pen injector 1.5 mg subcut WEEKLY Qty: 1 RF: 0 atorvastatin 20 mg tablet 20 mg PO HS RF: 0 meclizine 12.5 mg tablet 12.5 mg PO UD PRN (Reason: Vertigo) RF: 0 Premarin 0.625 mg tablet 0.625 mg PO QAM RF: 0 hydrochlorothiazide 12.5 mg capsule 12.5 mg PO QAM RF: 0 metformin 500 mg tablet extended release 24 hr 1,000 mg PO BID RF: 0 Discontinued omega-3 acid ethyl esters 1 gram capsule 1 cap PO DAILY Qty: 90 RF: 0 Discharge Orders: Discharge Order (Routine); Ordered 01/28/20 Ordered By: Salvador Hernadez/Other Patient Handouts: Surgery Prevent DVT After, Tube Hemovac Drainage Care Dc Admission Data Admit Date/Time: 03/13/19 08:27 Attending Provider: Jonathan Coello Admit Provider: Jonathan Coello Primary Care Provider: Shawn Esparza III Other Interventions: Discharge Summary Assessment (RN) Last Done: 03/14/19 11:05 DC Date/Time DO NOT enter until pt leaves facility: 03/14/19 12:13
== END 2019-03-14 12:13 | disposition home health service (06) | DRG 470 ==
LOC: ASU 04:48 → 3E 08:27

== ENCOUNTER 2019-08-07 05:15 | Inpatient (IN) ==
--- NOTE | 2019-07-27 12:54 | Anesthesiology Consultation ---
Date of Service July 27, 2019 Assessment & Plan (1) Encounter for pre-operative examination: COVID Status: As of 07/26 nurse assessment, patient denies travel to endemic area, known exposure/sick contacts, or symptoms of COVID19. Preoperative COVID19 testing to be completed on 08/02. BSG AM DOS Chart Review Chart Review: Acceptable Risk for Surgery and Patient NOT seen in Pre Admission Testing History Surgery Operation Date: 08/07/19 08:10 Proposed Procedures p Left Total Knee Arthroplasty - Jonathan Coello Height/Weight Height: 5 ft 8 in Weight: 103.419 kg Allergies Allergy/AdvReac Type Severity Reaction Status Date / Time Penicillins Allergy Mild RASH Verified 07/27/19 11:38 Medications Home Medications Medication Instructions Recorded Confirmed Last Taken omeprazole 20 mg capsule,delayed 20 mg PO BID #180 cap 10/25/18 07/27/19 03/13/19 03:30 release cholecalciferol (vitamin D3) 125 5,000 units PO QAM cap 11/16/18 07/27/19 02/20/19 mcg (5,000 unit) capsule cyanocobalamin (vitamin B-12) 500 500 mcg SL QAM tab 11/16/18 07/27/19 02/20/19 mcg disintegrating tablet,sublingual Premarin 0.625 mg PO QAM 02/03/19 07/27/19 03/12/19 06:00 atorvastatin 20 mg PO HS 02/03/19 07/27/19 03/12/19 20:30 hydrochlorothiazide 12.5 mg PO QAM 02/03/19 07/27/19 03/12/19 06:00 meclizine 12.5 mg PO UD PRN 02/03/19 07/27/19 Unknown metformin 1,000 mg PO BID 02/03/19 07/27/19 03/11/19 22:00 sennosides [Senokot] 17.2 mg PO HS PRN #30 tab 03/13/19 07/27/19 Unknown dulaglutide 1.5 mg/0.5 mL 1.5 mg SUBCUT WEEKLY #6 ml 03/31/19 07/27/19 Unknown subcutaneous pen injector levothyroxine 125 mcg tablet 125 mcg PO QAM #90 tab 05/08/19 07/27/19 Unknown omega-3 acid ethyl esters 1 gram 1 cap PO DAILY #90 cap 05/08/19 07/27/19 Unknown capsule Past Medical History Medical History Acid reflux controlled Diabetes mellitus, type 2 Diverticulosis of colon Hx of vertigo Hypercholesterolemia Hypothyroidism Obesity Osteoarthrosis Sleep apnea "mild"/no device Thyroid nodule under surveillance Past Family History Family History Brother Myocardial infarction, Onset Age: 37 at age 37 Mother Myocardial infarction Hypertension Thyroid disorder Grandfather (Maternal) Myocardial infarction Aunt Myocardial infarction Uncle Myocardial infarction Other Pure hypercholesterolemia Denies family history of Ovarian cancer Prostate cancer Breast cancer Colorectal cancer Past Surgical History Surgical History History of bladder surgery TAC WITH MESH History of colonoscopy History of left hip replacement History of left knee surgery History of partial hysterectomy OVARIES REMAIN History of tonsillectomy History of total right hip replacement Social History Smoking Status: Former smoker tobacco type: cigarettes Do You Dip or Chew Tobacco: No Smoking End Date: 2008 Hx Alcohol Use: Yes Alcohol type: beer, wine and hard liquor alcohol intake frequency: a few times a month Hx Substance Use: No substance use type: does not use Testing Laboratory Results 07/18/19 WBC: 4.90 H/H: 12.5/38.7 PLATELETS: 284 SODIUM: 138 POTASSIUM: 3.8 CHLORIDE: 102 CO2: 27 BUN: 9 CREATININE: 0.86 GLUCOSE: 85 PT: 10.3 PTT: 26.8 INR: 1.0 UA: negative Electrocardiogram Date: 02/13/19 Findings: + NSR @ (95bpm) Left axis deviation. Chest X-Ray Date: 02/13/19 Findings: + NAD
--- NOTE | 2019-08-06 21:06 | History & Physical Report ---
Date of Service August 06, 2019 Assessment & Plan (1) Degenerative joint disease of left knee: plan is for TKA and home dc next day. History of Present Illness Chief Complaint: left knee pain Primary Care Provider: Shawn Esparza MD Pleasant female with complaints of left knee pain for years. has failed all forms of conservative measures, now ready for tka. Allergies Allergy/AdvReac Type Severity Reaction Status Date / Time Penicillins Allergy Mild RASH Verified 07/27/19 11:38 Home Medications Home Medications Medication Instructions Recorded Confirmed Type omeprazole 20 mg capsule,delayed 20 mg PO BID #180 cap 10/25/18 07/27/19 Rx release cholecalciferol (vitamin D3) 125 5,000 units PO QAM cap 11/16/18 07/27/19 History mcg (5,000 unit) capsule cyanocobalamin (vitamin B-12) 500 500 mcg SL QAM tab 11/16/18 07/27/19 History mcg disintegrating tablet,sublingual Premarin 0.625 mg PO QAM 02/03/19 07/27/19 History atorvastatin 20 mg PO HS 02/03/19 07/27/19 History hydrochlorothiazide 12.5 mg PO QAM 02/03/19 07/27/19 History meclizine 12.5 mg PO UD PRN 02/03/19 07/27/19 History metformin 1,000 mg PO BID 02/03/19 07/27/19 History sennosides [Senokot] 17.2 mg PO HS PRN #30 tab 03/13/19 07/27/19 Rx dulaglutide 1.5 mg/0.5 mL 1.5 mg SUBCUT WEEKLY #6 ml 03/31/19 07/27/19 Rx subcutaneous pen injector levothyroxine 125 mcg tablet 125 mcg PO QAM #90 tab 05/08/19 07/27/19 Rx omega-3 acid ethyl esters 1 gram 1 cap PO DAILY #90 cap 05/08/19 07/27/19 Rx capsule Past Med/Surg History Medical History Acid reflux controlled Diabetes mellitus, type 2 Diverticulosis of colon Hx of vertigo Hypercholesterolemia Hypothyroidism Obesity Osteoarthrosis Sleep apnea "mild"/no device Thyroid nodule under surveillance Surgical History History of bladder surgery TAC WITH MESH History of colonoscopy History of left hip replacement History of left knee surgery History of partial hysterectomy OVARIES REMAIN History of tonsillectomy History of total right hip replacement Family History Brother Myocardial infarction, Onset Age: 37 at age 37 Mother Myocardial infarction Hypertension Thyroid disorder Grandfather (Maternal) Myocardial infarction Aunt Myocardial infarction Uncle Myocardial infarction Other Pure hypercholesterolemia Denies family history of Ovarian cancer Prostate cancer Breast cancer Colorectal cancer Social History (Updated 11/18/18 @ 15:24 by Marcelina Garg) Preferred Language: Yi Communication Ability: Effective Mobile Lab Technician Required: No Beliefs That Will Affect Care: None marital status: Single Current Living Situation: Significant Other current occupational status: employed Feels Safe at Home: Yes Smoking Status: Former smoker Tobacco Type: cigarettes ; Age Quit Using Tobacco: 43 ; Second Hand Exposure: No ; Hx Alcohol Use: Yes Alcohol type: beer, wine and hard liquor Alcohol Intake Frequency: Rarely Hx Substance Use: No Dental Care, Regularly: Yes Physical Activity Frequency: Does not Exercise Seatbelt Use: always Sunscreen Use: Yes Review of Systems All systems reviewed & are unremarkable except as noted in HPI & below Physical Exam Constitutional: WD/WN, vitals as above Respiratory: normal respiratory effort, lungs clear to auscultation Cardiovascular: RRR, no murmur, no edema Gastrointestinal (Abdomen): normal bowel sounds, soft, nontender, no hepatosplenomegaly Musculoskeletal: Knee: + limited ROM of knee, + knee ROM with crepitation and + varus alignment
[2019-08-07] MEDS ORDERED: TRANEXAMIC ACID 1,000 MG **IV Intra-op IV SCH (06:00)
[2019-08-07] MEDS ORDERED: ACETAMINOPHEN 500 MG TAB PO SCH (06:00)
[2019-08-07] MEDS ORDERED: LR 500ML BOLUS, THEN 15ML/HR IV SCH (06:00)
[2019-08-07] MEDS ORDERED: dexAMETHasone 4 MG TAB PO SCH (06:00)
[2019-08-07] MEDS ORDERED: CEFAZOLIN 2000MG 2,000 MG/15 ML SYR IV SCH (06:00)
[2019-08-07] MEDS ORDERED: LR 60ML/HR IV SCH (06:00)
[2019-08-07] MEDS ORDERED: CeleBREX 200 MG CAP PO SCH (06:00)
[2019-08-07] MEDS ORDERED: METOCLOPRAMIDE HCL 10 MG TABLET PO SCH (06:00)
[2019-08-07] MEDS ORDERED: ROPIVACAINE 0.5% HCL/PF 150 MG, BUPIVACAINE 0.5% MPF 30 ML, EPINEPHrine 30MG/30ML (OR U... INSTIL SCH (06:00)
[2019-08-07] MEDS ORDERED: TRANEXAMIC ACID 1,000 MG **IV Pre-op IV SCH (06:00)
[2019-08-07] MEDS ORDERED: FAMOTIDINE 20 MG TAB PO SCH (06:00)
[2019-08-07] MEDS ORDERED: BUPIVACAINE 0.25% 30 ML VIAL ONE (06:25)
[2019-08-07] MEDS ORDERED: BUPIVACAINE 0.5 % 5 MG/1 ML PF 10ML VIAL ONE (06:25)
[2019-08-07] MEDS ORDERED: ORTHO JOINT ANESTHETIC ONE (06:36)
[2019-08-07] MEDS ORDERED: BACITRACIN INJ 50,000 UNIT VIAL ONE (06:36)
[2019-08-07] MEDS ORDERED: MIDAZOLAM HCL 1 MG/ML 2ML VIAL ONE ×2 (06:48→07:39)
[2019-08-07] MEDS ORDERED: fentaNYL citrate 100 MCG/2 ML VIAL ONE (06:48)
--- NOTE | 2019-08-07 06:51 | History & Physical Bridge Note ---
Date of Service August 07, 2019 History & Physical Bridge Note I have examined the patient, reviewed the History & Physical and in the interval since the performance of the History & Physical I have noted the following changes of clinical significance: no changes noted
[2019-08-07] MEDS ORDERED: ATROPINE SULFATE 0.1 MG/ML 10ML SYR IV PRN (07:09)
[2019-08-07] MEDS ORDERED: fentaNYL citrate 100 MCG/2 ML VIAL IV PRN (07:09)
[2019-08-07] MEDS ORDERED: ONDANSETRON INJ 2 MG/ML 2 ML VIAL IV PRN ×2 (07:09→10:01)
[2019-08-07] MEDS ORDERED: ePHEDrine sulfate 50 MG/ML AMP IV PRN (07:09)
[2019-08-07] MEDS ORDERED: ONDANSETRON INJ 2 MG/ML 2 ML VIAL ONE (07:38)
[2019-08-07] MEDS ORDERED: PROPOFOL IV EMULSION 10 MG/ML 20 ML VIAL IV ONE ×2 (07:38→07:40)
[2019-08-07] MEDS ORDERED: LIDOCAINE HCL 2% 2 ML VIAL/AMP(20MG/ML) INFIL ONE (07:38)
--- NOTE | 2019-08-07 08:17 | Operative Report ---
Post Operative Report Pre & Post Diagnosis Operation Date: 08/07/19 07:00 Pre-Op Diagnosis: Left Knee Degenerative Joint Disease Post-Op Diagnosis: Left Knee Degenerative Joint Disease I identified the patient and participated in the time-out.: Yes Procedure Operation Date: 08/07/19 07:00 Actual Procedures p Left Total Knee Arthroplasty(Left) - Jonathan Coello Surgeon Jonathan Coello Night Manager Salvador Jha PAc Estimated Blood Loss 10 Findings Consistent with Post-Op Diagnosis Specimens none Anesthesia Type MAC Spinal Regional Complications none Description of Procedure IMPLANTS USED:[employer] journey 2 kneeSize 3 cemented femoral component, a size 3 tibia component, a size 12 PS insert and a size 29 all polyethylene patella INDICATIONS: [/Mrs. Elizalde is a pleasant (female) who has unfortunately failed all forms of conservative measures. Therefore, they have decided to undergo elective surgical intervention. All risks and benefits of the surgery were discussed with the patient and the family in entirety. PROCEDURE: The patient was brought to the operating room and properly identified by myself, anesthesia, and staff. Patient was given a spinal anesthesia and placed on the operating table in the supine position. Tourniquets were applied to the [right/left] upper thigh. The leg was then prepped and draped in usual sterile fashion. We made a standard midline approach over the patella and dissected down through the subcutaneous tissue to identify the capsule and performed a medial capsulotomy with the patella everted and the knee flexed.The patient matched implant was then put onto the femur. The femur measured to be a size []. This was then put into place. We made the appropriate cuts and then placed a retractor behind the proximal tibia to retract anteriorly. We then placed the patient matched knee implant on the tibia. It measured to be a size 3. A size 3 guide was then put in place. We used the tibial punch then put the trial components into place. We had very good range of motion, excellent stability, and excellent patella tracking. We removed the trial components and irrigated the wound. We impacted the components in place using antibiotic cement. All excess cement was removed. We then irrigated the wound once more. We closed the capsule with 0 PDS suture, deep dermis and 2-0 Vicryl, and finally the skin with warren. A sterile dressing was applied. The patient was taken to the recovery room in stable condition. Due to the complex nature of the procedure, the entire surgery was performed with the operational assistance of Salvador LINARES)Compa. The administrative support assistant was under direct supervision, was involved in the actual performance of all aspects of the surgical procedure including hemostasis, tissue retraction and incision, instrument management, patient positioning, and wound closure. I attest to the content of the Intraoperative Record and any orders documented therein. Any exceptions are noted below.
--- NOTE | 2019-08-07 09:43 | Anesthesiology Progress Note ---
Date of Service August 07, 2019 Anesthesia Post Procedure Vital Signs Vital Signs: Temp Pulse Pulse Resp BP Pulse Ox 08/07/19 09:20 36.4 C L 69 15 140/84 99 08/07/19 09:10 36.4 C L 73 13 157/84 H 100 08/07/19 09:00 78 11 L 147/90 H 100 08/07/19 08:50 80 13 143/84 H 100 08/07/19 08:40 36.2 C L 86 16 123/78 98 08/07/19 07:15 85 20 172/97 H 95 08/07/19 05:43 37.2 C 99 H 20 152/116 H 95 Transfer of Care Handoff Completed per policy Notes Mental Status: alert / awake / arousable and participated in evaluation Patient Amnestic to Procedure: Yes Nausea / Vomiting: adequately controlled Pain: adequately controlled Airway Patency, RR, SpO2: stable & adequate BP & HR: stable & adequate Hydration State: stable & adequate Neuraxial Anesthesia: was administered and sensory block is resolving Anesthetic Complications: no major complications apparent and Pt Satisfied with anesthetic care
[2019-08-07] MEDS ORDERED: MAGNESIUM HYDROXIDE SUSP 30 ML UDC PO PRN (10:01)
[2019-08-07] MEDS ORDERED: NALOXONE HCL 0.4 MG/1 ML VIAL/CARP IV PRN (10:01)
[2019-08-07] MEDS ORDERED: bisacodyL 10 MG SUPP PR PRN (10:01)
[2019-08-07] MEDS ORDERED: MECLIZINE 12.5 MG TAB PO PRN (10:01)
[2019-08-07] MEDS ORDERED: ALUMINUM/MAGNESIUM SUSP 30 ML UDC PO PRN (10:01)
[2019-08-07] MEDS ORDERED: METOCLOPRAMIDE HCL INJ 5 MG/ML 2 ML VIAL IV PRN (10:01)
[2019-08-07] MEDS: hydroCHLOROthiazide 25 MG TAB PO SCH (11:28)
[2019-08-07] MEDS: ESTROGENS, CONJUGATED 0.625 MG TAB PO SCH (11:28)
[2019-08-07] MEDS: ASPIRIN 81 MG ECTAB PO SCH ×2 (11:28→21:56)
[2019-08-07] MEDS: METFORMIN HCL ER 500 MG TABCR PO SCH ×2 (11:29→21:56)
[2019-08-07] MEDS: DOCUSATE SODIUM 100 MG CAP PO SCH ×2 (11:29→21:56)
[2019-08-07] MEDS: LEVOTHYROXINE SODIUM 125 MCG TABLET PO SCH (11:29)
[2019-08-07] MEDS: MULTIVITAMIN TAB PO SCH (12:21)
[2019-08-07] MEDS: CHOLECALCIFEROL 1,000 UNITS 25 MCG TAB PO SCH (12:21)
[2019-08-07] MEDS: SODIUM CHLORIDE 0.9% 1000ML 1,000 ML IV SCH ×2 (12:25→23:44)
[2019-08-07] MEDS: ACETAMINOPHEN 500 MG TAB PO SCH ×2 (13:54→21:56)
[2019-08-07] MEDS: CEFAZOLIN 2000MG 2,000 MG/15 ML SYR IV SCH ×2 (14:41→22:51)
[2019-08-07] MEDS: OXYCODONE HCL IR 5 MG TAB (IMMEDIATE RELEASE) PO PRN ×3 (14:43→22:51)
[2019-08-07] MEDS ORDERED: SENNA 8.6 MG TAB PO SCH (21:00)
[2019-08-07] MEDS ORDERED: ATORVASTATIN 20 MG TAB PO SCH (21:00)
[2019-08-08] MEDS: OXYCODONE HCL IR 5 MG TAB (IMMEDIATE RELEASE) PO PRN ×3 (03:50→13:23)
[2019-08-08] MEDS: ACETAMINOPHEN 500 MG TAB PO SCH ×2 (05:42→13:12)
[2019-08-08 06:05] LABS: Hemoglobin 10.5 g/dL (12.0-16.0); Mean Corpuscular Hemoglobin 28.9 pg (25-34); Mean Corpuscular Hgb Conc 31.8 g/dL (32-36); Mean Corpuscular Volume 90.9 fL (80-100); Mean Platelet Volume 9.9 fL (7.4-10.4); Platelet Count 276 K/uL (130-400); RDW Coefficient of Variation 16.2 % (11.5-14.5); Red Blood Count 3.63 M/uL (4.2-5.4); White Blood Count 8.64 K/uL (4.8-10.8)
[2019-08-08 06:40] LABS: BUN Creatinine Ratio 16.4 (10-20); Calcium 9.2 mg/dl (8.5-10.1); Creatinine Clr Calc Pharmacy 78.2 ml/min; Est GFR (African American) 71.7; Est GFR (Non-African American) 61.9; Potassium 3.9 mmol/L (3.5-5.1)
[2019-08-08] MEDS ORDERED: dexAMETHasone 10 MG in SYRINGE 0 ML IV SCH (08:00)
--- NOTE | 2019-08-08 08:11 | Anesthesiology Progress Note ---
Date of Service August 08, 2019 Anesthesia Post Procedure Vital Signs Vital Signs: Temp Pulse Pulse Resp BP Pulse Ox 08/08/19 07:27 36.5 C 66 16 119/76 99 08/08/19 04:07 36.4 C L 71 18 132/84 99 08/07/19 23:10 36.5 C 60 18 123/79 95 08/07/19 19:19 36.9 C 77 16 110/73 95 08/07/19 15:56 36.8 C 73 16 122/85 95 08/07/19 12:31 87 16 151/90 H 98 08/07/19 11:48 82 16 130/84 95 08/07/19 10:40 76 16 145/90 H 97 08/07/19 10:10 72 16 138/87 98 08/07/19 09:40 36.6 C 76 16 126/79 97 08/07/19 09:20 36.4 C L 69 15 140/84 99 08/07/19 09:10 36.4 C L 73 13 157/84 H 100 08/07/19 09:00 78 11 L 147/90 H 100 08/07/19 08:50 80 13 143/84 H 100 08/07/19 08:40 36.2 C L 86 16 123/78 98 Pain Intensity Left Knee: Pain Intensity: 3 Notes Mental Status: alert / awake / arousable and participated in evaluation Patient Amnestic to Procedure: Yes Nausea / Vomiting: adequately controlled Pain: adequately controlled Airway Patency, RR, SpO2: stable & adequate BP & HR: stable & adequate Hydration State: stable & adequate Neuraxial Anesthesia: was administered and sensory block resolved Anesthetic Complications: no major complications apparent and Pt Satisfied with anesthetic care
--- NOTE | 2019-08-08 08:15 | Orthopedic Progress Note ---
Date of Service August 08, 2019 Assessment & Plan (1) Degenerative joint disease of left knee: Postop day 1 status post left total knee arthroplasty. PT/OT protocols. Weightbearing as tolerated. DVT prophylaxis with aspirin p.o. twice daily, SCDs Continue current pain regimen as written. Charge planning-patient is planning for home health services upon discharge. Admission and Anticipated Discharge Date Admission Date: August 07, 2019 Subjective Postop day 1 Patient is sitting up in bed awake and alert. No complaints this morning. Pain is controlled. Denies shortness of breath, chest pain, lightheadedness. She states that she is already ambulated around the hallway twice. She is hoping to go home today. Physical Exam Physical Exam: Dressings are clean, dry, and intact. Calves are soft nontender. Neurovascular is intact. Toes are mobile. She has good dors iflexion and plantarflexion strength on the operative side. Results & Data ([facility]) Vital Signs (Past 12 Hours) Vital Signs Temp Pulse Resp BP Pulse Ox 08/08/19 07:27 36.5 C 66 16 119/76 99 08/08/19 04:07 36.4 C L 71 18 132/84 99 08/07/19 23:10 36.5 C 60 18 123/79 95 Laboratory Results Laboratory Results WBC 8.64 K/uL (4.8-10.8) 08/08/19 05:46 RBC 3.63 M/uL (4.2-5.4) L 08/08/19 05:46 Hgb 10.5 g/dL (12.0-16.0) L 08/08/19 05:46 Hct 33.0 % (37-47) L 08/08/19 05:46 MCV 90.9 fL (80-100) 08/08/19 05:46 MCH 28.9 pg (25-34) 08/08/19 05:46 MCHC 31.8 g/dL (32-36) L 08/08/19 05:46 RDW Std Deviation 54.0 fL (36.4-46.3) H 08/08/19 05:46 RDW Coeff of Sada 16.2 % (11.5-14.5) H 08/08/19 05:46 Plt Count 276 K/uL (130-400) 08/08/19 05:46 MPV 9.9 fL (7.4-10.4) 08/08/19 05:46 Sodium 137 mmol/L (136-145) 08/08/19 05:46 Potassium 3.9 mmol/L (3.5-5.1) 08/08/19 05:46 Chloride 104 mmol/L (98-107) 08/08/19 05:46 Carbon Dioxide 26 mmol/L (21-32) 08/08/19 05:46 Anion Gap 7.0 (3-11) 08/08/19 05:46 BUN 17 mg/dl (7-18) 08/08/19 05:46 Creatinine 1.02 mg/dl (0.6-1.2) 08/08/19 05:46 Est Cr Clr Drug Dosing 78.2 ml/min 08/08/19 05:46 Est GFR ( Amer) 71.7 08/08/19 05:46 Est GFR (Non-Af Amer) 61.9 08/08/19 05:46 BUN/Creatinine Ratio 16.4 (10-20) 08/08/19 05:46 Glucose 118 mg/dl (70-99) H 08/08/19 05:46 POC Glucose 129 mg/dl (70-99) H 08/07/19 08:46 Calcium 9.2 mg/dl (8.5-10.1) 08/08/19 05:46 Blood Type O Positive 08/07/19 05:34 Antibody Screen NEGATIVE 08/07/19 05:34
[2019-08-08] MEDS: CHOLECALCIFEROL 1,000 UNITS 25 MCG TAB PO SCH (08:40)
[2019-08-08] MEDS: MULTIVITAMIN TAB PO SCH (08:40)
[2019-08-08] MEDS: ASPIRIN 81 MG ECTAB PO SCH (08:40)
[2019-08-08] MEDS: ESTROGENS, CONJUGATED 0.625 MG TAB PO SCH (08:41)
[2019-08-08] MEDS: LEVOTHYROXINE SODIUM 125 MCG TABLET PO SCH (08:41)
[2019-08-08] MEDS: DOCUSATE SODIUM 100 MG CAP PO SCH (08:41)
[2019-08-08] MEDS: hydroCHLOROthiazide 25 MG TAB PO SCH (08:41)
[2019-08-08] MEDS: METFORMIN HCL ER 500 MG TABCR PO SCH (08:42)
--- NOTE | 2019-08-09 17:00 | Discharge Summary (DS) ---
DISCHARGE DIAGNOSIS: Degenerative joint disease, left knee. SECONDARY DIAGNOSES: Gastroesophageal reflux disease, diabetes mellitus type 2, history of diverticulosis, vertigo, hypercholesterolemia, hypothyroidism, obesity, osteoarthrosis, sleep apnea, thyroid nodule. CONSULTS: None. COMPLICATIONS: None. PROCEDURES: Left total knee arthroplasty performed by Dr. Coello on 08/07/2019. BRIEF HISTORY: As dictated in the history and physical. HOSPITAL SUMMARY: The patient was admitted on the above-noted date and had the above-noted surgery performed, which she tolerated well. On the first postoperative day, she was sitting up in bed, awake and alert, no complaints that morning. Pain was controlled. Denied shortness of breath, chest pain or lightheadedness. She stated that she was already ambulating around the hallway twice and was hoping to go home that day. Dressings were clean, dry and intact. Calves were soft, nontender, neurovascularly intact. Toes were mobile. She had good dorsiflexion and plantarflexion strengths on the operative side and vital signs were stable and she is afebrile. Hemoglobin was 10.5 and she was started on PT and OT protocols, continued on DVT prophylaxis and pain management. She progressed well with her physical therapy and was remaining stable, and it was felt she could be discharged to home on 08/08/2019. For further review, please see chart. LABORATORY AND X-RAY DATA: As per chart. DISCHARGE INSTRUCTIONS: The patient was discharged to home in satisfactory condition on 08/08/2019. DIET: Diabetic. ACTIVITY: Weightbearing as tolerated on the left lower extremity with walker. Follow TKA instruction sheets and special care instructions as noted by Dr. Coello's instructions. MEDICATIONS: Related to her surgery have already been sent to the pharmacy per Dr. Coello's office. Discharge medications are acetaminophen 1000 mg p.o. q.8 hours, aspirin 81 mg p.o. b.i.d., Dr. Coello had written for oxycodone 5 mg p.o. q.4 hours p.r.n. Resume home meds as listed. Stop taking [place]-3. FOLLOW UP: With Dr. Coello in 2 weeks.
== END 2019-08-08 14:34 | disposition home health service (06) | DRG 470 ==
LOC: ASU 05:15 → 3E 08:44

== ENCOUNTER 2019-10-09 05:06 | Inpatient (IN) ==
--- NOTE | 2019-09-22 15:11 | Anesthesiology Consultation ---
Date of Service September 22, 2019 Assessment & Plan (1) Encounter for pre-operative examination: Chart Review Chart Review: Acceptable Risk for Surgery (pending preop Covid testing 10/03) and Patient NOT seen in Pre Admission Testing - Check BSG AM DOS Per nursing assessment 09/21/2019, patient resides in [facility]. No recent travel. Has been recuperating since left TKA on 07/2019. Patient's scheduled for preop COVID testing 10/04/2019. Left TKA 08/07/19= Done with SAB History Surgery Operation Date: 10/09/19 09:20 Proposed Procedures p Right Total Knee Arthroplasty - Jonathan Coello Height/Weight Height: 5 ft 8 in Weight: 104.326 kg Allergies Allergy/AdvReac Type Severity Reaction Status Date / Time Penicillins Allergy Mild RASH Verified 09/21/19 12:29 Medications Home Medications Medication Instructions Recorded Confirmed Last Taken omeprazole 20 mg capsule,delayed 20 mg PO BID #180 cap 10/25/18 09/21/19 08/06/19 21:00 release cholecalciferol (vitamin D3) 125 5,000 units PO QAM cap 11/16/18 09/21/19 07/30/19 07:00 mcg (5,000 unit) capsule cyanocobalamin (vitamin B-12) 500 500 mcg SL QAM tab 11/16/18 09/21/19 02/20/19 mcg disintegrating tablet,sublingual atorvastatin 20 mg PO HS 02/03/19 09/21/19 08/06/19 06:00 hydrochlorothiazide 12.5 mg PO QAM 02/03/19 09/21/19 08/06/19 07:00 meclizine 12.5 mg PO UD PRN 02/03/19 09/21/19 Unknown metformin 1,000 mg PO BID 02/03/19 09/21/19 08/05/19 22:00 dulaglutide 1.5 mg/0.5 mL 1.5 mg SUBCUT WEEKLY #6 ml 03/31/19 09/21/19 08/05/19 10:00 subcutaneous pen injector levothyroxine 125 mcg tablet 125 mcg PO QAM #90 tab 05/08/19 09/21/19 08/07/19 03:30 conjugated estrogens 0.625 mg 0.625 mg PO QAM #90 tab 08/18/19 09/21/19 Unknown tablet celecoxib [Celebrex] 200 mg PO BID 09/21/19 09/21/19 Unknown Past Medical History Medical History Acid reflux controlled Diabetes mellitus, type 2 GERD (gastroesophageal reflux disease) Hx of vertigo Hypercholesterolemia Hypothyroidism Migraine HX Obesity Osteoarthrosis Sleep apnea "mild"/no device Thyroid nodule under surveillance Past Family History Family History Brother Myocardial infarction, Onset Age: 37 at age 37 Mother Myocardial infarction Hypertension Thyroid disorder Grandfather (Maternal) Myocardial infarction Aunt Myocardial infarction Uncle Myocardial infarction Other Pure hypercholesterolemia Denies family history of Ovarian cancer Prostate cancer Breast cancer Colorectal cancer Past Surgical History Surgical History History of bladder surgery TAC WITH MESH History of colonoscopy History of left hip replacement History of left knee surgery History of partial hysterectomy OVARIES REMAIN History of tonsillectomy History of total knee replacement LEFT History of total right hip replacement Social History Smoking Status: Former smoker tobacco type: cigarettes Do You Dip or Chew Tobacco: No Smoking End Date: 2008 Hx Alcohol Use: Yes Alcohol type: beer and wine alcohol intake frequency: a few times a month Hx Substance Use: No substance use type: does not use Testing Laboratory Results Laboratory Tests 09/21/19 09/21/19 09/21/19 14:44 14:44 14:44 WBC 4.61 L Hgb 11.1 L Hct 34.8 L Plt Count 358 PT 10.5 INR 1.0 APTT 28.5 Sodium 140 Potassium 3.9 Chloride 105 Carbon Dioxide 28 BUN 10 Creatinine 0.84 Glucose 79 Hemoglobin A1c 09/21/19 14:44 WBC Hgb Hct Plt Count PT INR APTT Sodium Potassium Chloride Carbon Dioxide BUN Creatinine Glucose Hemoglobin A1c 5.5 Mild anemia since 08/08/19- H&H was 10.5/33.0 (had right TKA 08/07/19) Electrocardiogram Date: 02/13/19 Findings: + NSR @ (95bpm) Left axis deviation. Chest X-Ray Date: 02/13/19 Findings: + NAD
--- NOTE | 2019-10-08 08:17 | History & Physical Report ---
Date of Service October 08, 2019 Assessment & Plan (1) Degenerative joint disease of right knee: Osteoarthritis type: primary Qualified Code(s): M17.11 - Unilateral primary osteoarthritis, right knee Admission and Anticipated Discharge Date Admission Date: 10/09/2019 Anticipated date of discharge: 10/10/19 History of Present Illness Chief Complaint: right knee pain Primary Care Provider: Shawn Esparza MD pain for years of right knee, has already had left tka and doing well. failed other conservative measures as well. read for right tka. Allergies Allergy/AdvReac Type Severity Reaction Status Date / Time Penicillins Allergy Mild RASH Verified 09/21/19 12:29 Home Medications Home Medications Medication Instructions Recorded Confirmed Type omeprazole 20 mg capsule,delayed 20 mg PO BID #180 cap 10/25/18 09/21/19 Rx release cholecalciferol (vitamin D3) 125 5,000 units PO QAM cap 11/16/18 09/21/19 History mcg (5,000 unit) capsule cyanocobalamin (vitamin B-12) 500 500 mcg SL QAM tab 11/16/18 09/21/19 History mcg disintegrating tablet,sublingual atorvastatin 20 mg PO HS 02/03/19 09/21/19 History hydrochlorothiazide 12.5 mg PO QAM 02/03/19 09/21/19 History meclizine 12.5 mg PO UD PRN 02/03/19 09/21/19 History metformin 1,000 mg PO BID 02/03/19 09/21/19 History dulaglutide 1.5 mg/0.5 mL 1.5 mg SUBCUT WEEKLY #6 ml 03/31/19 09/21/19 Rx subcutaneous pen injector levothyroxine 125 mcg tablet 125 mcg PO QAM #90 tab 05/08/19 09/21/19 Rx conjugated estrogens 0.625 mg 0.625 mg PO QAM #90 tab 08/18/19 09/21/19 Rx tablet celecoxib [Celebrex] 200 mg PO BID 09/21/19 09/21/19 History Past Med/Surg History Medical History Acid reflux controlled Diabetes mellitus, type 2 GERD (gastroesophageal reflux disease) Hx of vertigo Hypercholesterolemia Hypothyroidism Migraine HX Obesity Osteoarthrosis Sleep apnea "mild"/no device Thyroid nodule under surveillance Surgical History History of bladder surgery TAC WITH MESH History of colonoscopy History of left hip replacement History of left knee surgery History of partial hysterectomy OVARIES REMAIN History of tonsillectomy History of total knee replacement LEFT History of total right hip replacement Family History Brother Myocardial infarction, Onset Age: 37 at age 37 Mother Myocardial infarction Hypertension Thyroid disorder Grandfather (Maternal) Myocardial infarction Aunt Myocardial infarction Uncle Myocardial infarction Other Pure hypercholesterolemia Denies family history of Ovarian cancer Prostate cancer Breast cancer Colorectal cancer Social History (Updated 11/18/18 @ 15:24 by Marcelina Garg) Smoking Status: Former smoker Age Quit Using Tobacco: 43; Second Hand Exposure: No; Hx Alcohol Use: Yes Alcohol type: beer and wine Hx Substance Use: No Preferred Language: Georgian Communication Ability: Effective Medical Reception Specialist Required: No Beliefs That Will Affect Care: None marital status: Single Current Living Situation: Significant Other current occupational status: employed Feels Safe at Home: Yes Dental Care, Regularly: Yes Physical Activity Frequency: Does not Exercise Seatbelt Use: always Sunscreen Use: Yes Review of Systems All systems reviewed & are unremarkable except as noted in HPI & below Physical Exam Constitutional: WD/WN, vitals as above Neck: trachea midline, no thyromegaly Respiratory: normal respiratory effort, lungs clear to auscultation Cardiovascular: RRR, no murmur, no edema Gastrointestinal (Abdomen): normal bowel sounds, soft, nontender, no hepatosplenomegaly Musculoskeletal: Knee: + limited ROM of knee, + knee ROM with crepitation and + joint line tenderness
[2019-10-09] MEDS ORDERED: LR 500ML BOLUS, THEN 15ML/HR IV SCH (06:00)
[2019-10-09] MEDS ORDERED: METOCLOPRAMIDE HCL 10 MG TABLET PO SCH (06:00)
[2019-10-09] MEDS ORDERED: CeleBREX 200 MG CAP PO SCH (06:00)
[2019-10-09] MEDS ORDERED: FAMOTIDINE 20 MG TAB PO SCH (06:00)
[2019-10-09] MEDS ORDERED: dexAMETHasone 4 MG TAB PO SCH (06:00)
[2019-10-09] MEDS ORDERED: CEFAZOLIN 2000MG 2,000 MG/15 ML SYR IV SCH (06:00)
[2019-10-09] MEDS ORDERED: LR 60ML/HR IV SCH (06:00)
[2019-10-09] MEDS ORDERED: ACETAMINOPHEN 500 MG TAB PO SCH (06:00)
[2019-10-09] MEDS ORDERED: TRANEXAMIC ACID 1,000 MG **IV Pre-op IV SCH (06:00)
[2019-10-09] MEDS ORDERED: ROPIVACAINE 0.5% HCL/PF 150 MG, BUPIVACAINE 0.5% MPF 30 ML, EPINEPHrine 30MG/30ML (OR U... INSTIL SCH (06:00)
[2019-10-09] MEDS ORDERED: TRANEXAMIC ACID 1,000 MG **IV Intra-op IV SCH (06:00)
[2019-10-09] MEDS ORDERED: BUPIVACAINE 0.25% 30 ML VIAL ONE (06:25)
[2019-10-09] MEDS ORDERED: BUPIVACAINE 0.5 % 5 MG/1 ML PF 10ML VIAL ONE (06:26)
[2019-10-09] MEDS ORDERED: MIDAZOLAM HCL 1 MG/ML 2ML VIAL ONE (06:36)
[2019-10-09] MEDS ORDERED: fentaNYL citrate 100 MCG/2 ML VIAL ONE (06:37)
[2019-10-09] MEDS ORDERED: HYDROmorphone INJ 1 MG/ML SYRINGE IV PRN (06:38)
[2019-10-09] MEDS ORDERED: fentaNYL citrate 100 MCG/2 ML VIAL IV PRN (06:38)
[2019-10-09] MEDS ORDERED: ONDANSETRON INJ 2 MG/ML 2 ML VIAL IV PRN ×2 (06:38→09:24)
[2019-10-09] MEDS ORDERED: ATROPINE SULFATE 0.1 MG/ML 10ML SYR IV PRN (06:38)
[2019-10-09] MEDS ORDERED: ePHEDrine sulfate 50 MG/ML AMP IV PRN (06:38)
--- NOTE | 2019-10-09 06:43 | History & Physical Bridge Note ---
Date of Service October 09, 2019 History & Physical Bridge Note I have examined the patient, reviewed the History & Physical and in the interval since the performance of the History & Physical I have noted the following changes of clinical significance: no changes noted
[2019-10-09] MEDS ORDERED: ORTHO JOINT ANESTHETIC ONE (06:45)
[2019-10-09] MEDS ORDERED: BACITRACIN INJ 50,000 UNIT VIAL ONE (06:45)
[2019-10-09] MEDS ORDERED: PROPOFOL IV EMULSION 10 MG/ML 20 ML VIAL IV ONE (07:49)
--- NOTE | 2019-10-09 08:14 | Post Operative Brief Note ---
Immediate Post Op Note v1 Date of Surgery October 09, 2019 Pre & Post Diagnosis Operation Date: 10/09/19 07:00 Pre-Op Diagnosis: Right Knee Osteoarthritis Post-Op Diagnosis: Right Knee Osteoarthritis I identified the patient and participated in the time-out.: Yes Procedure Operation Date: 10/09/19 07:00 Actual Procedures p Right Total Knee Arthroplasty(Right) - Jonathan Coello Surgeon Jonathan Coello Criminal Intelligence Analyst Salvador Jha PAc Estimated Blood Loss 10 Findings Consistent with Post-Op Diagnosis Complications none Disposition Disposition: Recovery Room
--- NOTE | 2019-10-09 08:15 | Operative Report ---
Post Operative Report Pre & Post Diagnosis Operation Date: 10/09/19 07:00 Pre-Op Diagnosis: Right Knee Osteoarthritis Post-Op Diagnosis: Right Knee Osteoarthritis I identified the patient and participated in the time-out.: Yes Procedure Operation Date: 10/09/19 07:00 Actual Procedures p Right Total Knee Arthroplasty(Right) - Jonathan Coello Surgeon Jonathan Coello Production Operations Manager Salvador Jha PAc Estimated Blood Loss 10 Findings Consistent with Post-Op Diagnosis Specimens none Complications none Disposition Accompanied Patient To Recovery: No Disposition: Recovery Room Description of Procedure IMPLANTS USED: [employer] journey 2 knee size 4 cemented femoral component, a size 4 tibial component, a size 11 PS insert and a size 32 polythene patella INDICATIONS: Mrs. Elizalde is a pleasant (male/female) who has unfortunately failed all forms of conservative measures. Therefore, they have decided to undergo elective surgical intervention. All risks and benefits of the surgery were discussed with the patient and the family in entirety. PROCEDURE: The patient was brought to the operating room and properly identified by myself, anesthesia, and staff. Patient was given a spinal anesthesia and placed on the operating table in the supine position. Tourniquets were applied to the right upper thigh. The leg was then prepped and draped in usual sterile fashion. We made a standard midline approach over the patella and dissected down through the subcutaneous tissue to identify the capsule and performed a medial capsulotomy with the patella everted and the knee flexed.The patient matched implant was then put onto the femur. The femur measured to be a size #4. This was then put into place. We made the appropriate cuts and then placed a retractor behind the proximal tibia to retract anteriorly. We then placed the patient matched knee implant on the tibia. It measured to be a size #4. A size #4 guide was then put in place. We used the tibial punch then put the trial components into place. We had very good range of motion, excellent stability, and excellent patella tracking. We removed the trial components and irrigated the wound. We impacted the components in place using antibiotic cement. All excess cement was removed. We then irrigated the wound once more. We closed the capsule with 0 PDS suture, deep dermis and 2-0 Vicryl, and finally the skin with warren. A sterile dressing was applied. The patient was taken to the recovery room in stable condition. Due to the complex nature of the procedure, the entire surgery was performed with the operational assistance of Salvador Cardona PA-C. The diploma medical assistant was under direct supervision, was involved in the actual performance of all aspects of the surgical procedure including hemostasis, tissue retraction and incision, instrument management, patient positioning, and wound closure. I attest to the content of the Intraoperative Record and any orders documented therein. Any exceptions are noted below.
[2019-10-09] MEDS ORDERED: MAGNESIUM HYDROXIDE SUSP 30 ML UDC PO PRN (09:24)
[2019-10-09] MEDS ORDERED: METFORMIN HCL ER 500 MG TABCR PO SCH (09:24)
[2019-10-09] MEDS ORDERED: MECLIZINE 12.5 MG TAB PO PRN (09:24)
[2019-10-09] MEDS ORDERED: NALOXONE HCL 0.4 MG/1 ML VIAL/CARP IV PRN (09:24)
[2019-10-09] MEDS ORDERED: METOCLOPRAMIDE HCL INJ 5 MG/ML 2 ML VIAL IV PRN (09:24)
[2019-10-09] MEDS ORDERED: bisacodyL 10 MG SUPP PR PRN (09:24)
[2019-10-09] MEDS ORDERED: ALUMINUM/MAGNESIUM SUSP 30 ML UDC PO PRN (09:24)
[2019-10-09] MEDS ORDERED: PHARMACY GLYCEMIC MGMT CONSULT PRN (09:34)
[2019-10-09] MEDS ORDERED: DEXTROSE 50% 50 ML SYRINGE IV PRN (09:45)
[2019-10-09] MEDS ORDERED: GLUCAGON FOR INJ 1 MG VIAL IM PRN (09:45)
[2019-10-09] MEDS ORDERED: GLUCOSE 40% GEL 15 GM TUBE PO PRN (09:45)
[2019-10-09] MEDS ORDERED: GLUCOSE 10 TABS/TUBE PO PRN (09:45)
[2019-10-09] MEDS ORDERED: CARBOHYDRATES FOR HYPOGLYCEMIA PO PRN (09:45)
[2019-10-09] MEDS ORDERED: NovoLIN-N (NPH) PER UNIT CHARGE SQ ONE (10:00)
[2019-10-09] MEDS: SODIUM CHLORIDE 0.9% 1000ML 1,000 ML IV SCH ×2 (10:28→20:03)
[2019-10-09] MEDS: hydroCHLOROthiazide 25 MG TAB PO SCH (10:29)
[2019-10-09] MEDS: INSULIN ASPART 100 UNITS/ML 3 ML PEN SC SCH ×4 (10:32→21:15)
[2019-10-09] MEDS: ASPIRIN 81 MG ECTAB PO SCH ×2 (12:31→20:07)
--- NOTE | 2019-10-09 13:41 | Pharmacy Report ---
Glycemic Control Consultation - Date of Service October 09, 2019 - Scope Scope: Glycemic Pharmacist consulted for glycemic control and to write orders per [facility] inpatient glycemic control protocol. - Objective Weight: 103.532 kg Accuchecks BSG (last 24hrs): 10/09/19 10/09/19 10/09/19 05:30 08:39 10:18 POC Glucose 151 H 124 H 147 H 10/09/19 12:11 POC Glucose 199 H - Recent Pertinent Medications Outpatient Anti-diabetic Regimen: * Trulicity 1.5 mg SQ weekly on Saturdays * metformin ER 1 gm PO BID * A1c = 5.5 % 09/21/2019 Risk Factors for Insulin Resistance: * Steroids: dexamethasone 8 mg PO preop plus dexamethasone 4 mg topically * Recent Surgery: POD 0 * Diet: ordered - Assessment & Plan Assessment & Plan: ASSESSMENT: * Ms Elizalde is a 54 y/o F with a PMH of T2DM well controlled on one oral and one injectable medication who presents for R arthroplasty. * Patient's BSG on admission were 151 mg/dL then 124 mg/dL. * Since patient received PO steroids preoperatively will give NPH (weight-based stress of 3 dose) plus utilize weight-based stress 2-3 Novolog. * Patient is to receive dexamethasone 10 mg IV x 1 tomorrow so plan is for her to receive more NPH tomorrow. * Pt is maintained on oral antidiabetic agents as an outpatient * Oral agents are not recommended for inpatient use d/t drug interactions, changing PO intake, and difficulty titrating for acute hyper/hypoglycemia. ADA recommends re-initiating outpatient oral agents 1-2 days prior to dis charge if/when appropriate if they were held on admission. * ADA & AACE recommend a goal blood sugar range 140-180 mg/dl for the majority of critically ill & non-critically ill patients. However, more stringent targets may be selected in individual cases. Will utilize more stringent goal of 110-140mg/dl based on patient age & comorbidities. Additionally, tighter glycemic control is warranted to facilitate wound healing. PLAN FOR INPATIENT GLYCEMIC CONTROL: * Holding outpatient oral diabetes medications- consider restarting on POD1 if kidney function okay and diet okay. * Basal insulin * NPH 25 units SQ x 1 * Bolus insulin * NovoLog per scale ACHS or Q6hrs while NPO * Goal Range: Low 110 mg/dL - High 140 mg/dL * Correction Factor: 20 mg/dL/unit * Nutritional / Prandial insulin per carb ratio of 1 unit per 6 grams CHO consumed RECOMMENDATION FOR DISCHARGE * Patient's HbA1C is well beneath goal (currently = 5.5% with goal HbA1C < 6.5%). * Continue home medications as tolerated. Thank you.
[2019-10-09] MEDS: ACETAMINOPHEN 500 MG TAB PO SCH ×2 (14:58→21:13)
[2019-10-09] MEDS: CEFAZOLIN 2000MG 2,000 MG/15 ML SYR IV SCH ×2 (14:58→22:18)
[2019-10-09] MEDS: OXYCODONE HCL IR 5 MG TAB (IMMEDIATE RELEASE) PO PRN ×2 (15:49→19:59)
--- NOTE | 2019-10-09 16:09 | Anesthesiology Progress Note ---
Date of Service October 09, 2019 Anesthesia Post Procedure Vital Signs Vital Signs: Temp Pulse Pulse Pulse Resp BP Pulse Ox 10/09/19 15:18 36.5 C 77 16 112/75 98 10/09/19 12:15 36.3 C L 78 16 119/78 96 10/09/19 11:16 82 16 121/82 94 10/09/19 10:19 79 16 129/84 95 10/09/19 09:50 80 16 132/85 97 10/09/19 08:55 36.4 C L 82 16 119/78 99 10/09/19 08:45 78 16 116/77 100 10/09/19 08:36 36.0 C L 86 16 106/75 98 10/09/19 05:49 37.2 C 108 H 20 162/91 H 95 Pain Intensity Right Knee: Pain Intensity: 0 Transfer of Care Handoff Completed per policy Notes Mental Status: alert / awake / arousable and participated in evaluation Patient Amnestic to Procedure: Yes Nausea / Vomiting: adequately controlled Pain: adequately controlled Airway Patency, RR, SpO2: stable & adequate BP & HR: stable & adequate Hydration State: stable & adequate Neuraxial Anesthesia: was administered and sensory block is resolving Anesthetic Complications: no major complications apparent and Pt Satisfied with anesthetic care
[2019-10-09] MEDS: PANTOprazole 40 MG TAB PO SCH (20:07)
[2019-10-09] MEDS: DOCUSATE SODIUM 100 MG CAP PO SCH (20:07)
[2019-10-09] MEDS ORDERED: SENNA 8.6 MG TAB PO SCH (21:00)
[2019-10-09] MEDS ORDERED: ATORVASTATIN 20 MG TAB PO SCH (21:00)
[2019-10-10] MEDS: OXYCODONE HCL IR 5 MG TAB (IMMEDIATE RELEASE) PO PRN ×3 (02:24→12:26)
[2019-10-10] MEDS: ACETAMINOPHEN 500 MG TAB PO SCH ×2 (05:25→13:12)
[2019-10-10 05:53] LABS: Hematocrit (blood only) 29.6 % (37-47); Hemoglobin 9.3 g/dL (12.0-16.0); Mean Corpuscular Hemoglobin 27.9 pg (25-34); Mean Corpuscular Hgb Conc 31.4 g/dL (32-36); Mean Corpuscular Volume 88.9 fL (80-100); Mean Platelet Volume 9.8 fL (7.4-10.4); Platelet Count 244 K/uL (130-400); RDW Coefficient of Variation 15.5 % (11.5-14.5); RDW Standard Deviation 50.7 fL (36.4-46.3); Red Blood Count 3.33 M/uL (4.2-5.4); White Blood Count 7.37 K/uL (4.8-10.8)
[2019-10-10 06:18] LABS: BUN Creatinine Ratio 15.2 (10-20); Calcium 8.9 mg/dl (8.5-10.1); Creatinine Clr Calc Pharmacy 95.3 ml/min; Est GFR (African American) 90.7; Est GFR (Non-African American) 78.2; Potassium 3.8 mmol/L (3.5-5.1)
[2019-10-10] MEDS ORDERED: LEVOTHYROXINE SODIUM 125 MCG TABLET PO SCH (06:30)
[2019-10-10] MEDS ORDERED: NovoLIN-N (NPH) PER UNIT CHARGE SQ ONE (08:00)
[2019-10-10] MEDS ORDERED: dexAMETHasone 10 MG in SYRINGE 0 ML IV SCH (08:00)
[2019-10-10] MEDS: DOCUSATE SODIUM 100 MG CAP PO SCH (08:27)
[2019-10-10] MEDS: ASPIRIN 81 MG ECTAB PO SCH (08:27)
[2019-10-10] MEDS: PANTOprazole 40 MG TAB PO SCH (08:28)
[2019-10-10] MEDS: hydroCHLOROthiazide 25 MG TAB PO SCH (08:28)
[2019-10-10] MEDS: INSULIN ASPART 100 UNITS/ML 3 ML PEN SC SCH ×2 (08:31→12:29)
--- NOTE | 2019-10-10 09:49 | Orthopedic Progress Note ---
Date of Service October 10, 2019 Assessment & Plan (1) Degenerative joint disease of right knee: Postop day 1 status post right total knee arthroplasty PT/OT protocols. Weightbearing as tolerated. DVT prophylaxis-aspirin p.o. twice daily, SCDs Pain management as written. DC planning-patient planning for home health services upon discharge. Progressing well with her physical therapy. Vital signs remaining stable. Plan for discharge to home today. Admission and Anticipated Discharge Date Admission Date: October 09, 2019 Subjective Postop day 1 Patient is sitting at the bedside working with physical therapy. She has just finished ambulating around the hallways. Feels well and is doing well. She is having some pain the back of the knee but is tolerating well. Denies shortness of breath, chest pain, lightheadedness. Physical Exam Physical Exam: Dressings are clean, dry, and intact. Calves are soft nontender. Neurovascular intact. Toes are mobile. She has good dorsiflexion and plantarflexion noted. Results & Data ([facility]) Vital Signs (Past 12 Hours) Vital Signs Temp Pulse Resp BP BP Pulse Ox 10/10/19 07:36 36.5 C 67 18 105/65 92 10/10/19 02:29 36.4 C L 77 18 113/73 98 10/09/19 23:33 36.4 C L 61 16 109/73 97 Laboratory Results Laboratory Results WBC 7.37 K/uL (4.8-10.8) 10/10/19 05:32 RBC 3.33 M/uL (4.2-5.4) L 10/10/19 05:32 Hgb 9.3 g/dL (12.0-16.0) L 10/10/19 05:32 Hct 29.6 % (37-47) L 10/10/19 05:32 MCV 88.9 fL (80-100) 10/10/19 05:32 MCH 27.9 pg (25-34) 10/10/19 05:32 MCHC 31.4 g/dL (32-36) L 10/10/19 05:32 RDW Std Deviation 50.7 fL (36.4-46.3) H 10/10/19 05:32 RDW Coeff of Sada 15.5 % (11.5-14.5) H 10/10/19 05:32 Plt Count 244 K/uL (130-400) 10/10/19 05:32 MPV 9.8 fL (7.4-10.4) 10/10/19 05:32 Sodium 137 mmol/L (136-145) 10/10/19 05:32 Potassium 3.8 mmol/L (3.5-5.1) 10/10/19 05:32 Chloride 106 mmol/L (98-107) 10/10/19 05:32 Carbon Dioxide 26 mmol/L (21-32) 10/10/19 05:32 Anion Gap 6.0 (3-11) 10/10/19 05:32 BUN 13 mg/dl (7-18) 10/10/19 05:32 Creatinine 0.84 mg/dl (0.6-1.2) 10/10/19 05:32 Est Cr Clr Drug Dosing 95.3 ml/min 10/10/19 05:32 Est GFR ( Amer) 90.7 10/10/19 05:32 Est GFR (Non-Af Amer) 78.2 10/10/19 05:32 BUN/Creatinine Ratio 15.2 (10-20) 10/10/19 05:32 Glucose 145 mg/dl (70-99) H 10/10/19 05:32 POC Glucose 145 mg/dl (70-99) H 10/10/19 08:12 Calcium 8.9 mg/dl (8.5-10.1) 10/10/19 05:32 Blood Type O Positive 10/09/19 05:46 Antibody Screen NEGATIVE 10/09/19 05:46 (1) Degenerative joint disease of right knee Osteoarthritis type: primary Qualified Code(s): M17.11 - Unilateral primary osteoarthritis, right knee
--- NOTE | 2019-10-13 13:33 | Discharge Summary ---
Date of Service October 13, 2019 Admission HPI Per Admitting Provider pain for years of right knee, has already had left tka and doing well. failed other conservative measures as well. read for right tka. Admission Exam Per Admitting Provider Physical Exam Constitutional: WD/WN, vitals as above Neck: trachea midline, no thyromegaly Respiratory: normal respiratory effort, lungs clear to auscultation Cardiovascular: RRR, no murmur, no edema Gastrointestinal (Abdomen): normal bowel sounds, soft, nontender, no hepatosplenomegaly Musculoskeletal: Knee: + limited ROM of knee, + knee ROM with crepitation and + joint line tenderness Principal Diagnosis DJD right knee Discharge Data Allergies Allergy/AdvReac Type Severity Reaction Status Date / Time Penicillins Allergy Mild RASH Verified 10/09/19 05:33 Consultations 10/09/19 09:24 Consult Case Management - Discharge Planning Routine Procedures Performed Operation Date: 10/09/19 07:00 Actual Procedures p Right Total Knee Arthroplasty(Right) - Jonathan Coello Ordered Studies 10/09/19 05:00 US - OR guided needle placemen Routine Hospital Course (1) Degenerative joint disease of right knee: Date of Service October 10, 2019 Assessment & Plan (1) Degenerative joint disease of right knee: Postop day 1 status post right total knee arthroplasty PT/OT protocols. Weightbearing as tolerated. DVT prophylaxis-aspirin p.o. twice daily, SCDs Pain management as written. DC planning-patient planning for home health services upon discharge. Progressing well with her physical therapy. Vital signs remaining stable. Plan for discharge to home today. Admission and Anticipated Discharge Date Admission Date: October 09, 2019 Subjective Postop day 1 Patient is sitting at the bedside working with physical therapy. She has just finished ambulating around the hallways. Feels well and is doing well. She is having some pain the back of the knee but is tolerating well. Denies shortness of breath, chest pain, lightheadedness. Physical Exam Physical Exam: Dressings are clean, dry, and intact. Calves are soft nontender. Neurovascular intact. Toes are mobile. She has good dorsiflexion a nd plantarflexion noted. Results & Data ([facility]) Vital Signs (Past 12 Hours) Vital Signs Temp Pulse Resp BP BP Pulse Ox 10/10/19 07:36 36.5 C 67 18 105/65 92 10/10/19 02:29 36.4 C L 77 18 113/73 98 10/09/19 23:33 36.4 C L 61 16 109/73 97 Laboratory Results Laboratory Results WBC 7.37 K/uL (4.8-10.8) 10/10/19 05:32 RBC 3.33 M/uL (4.2-5.4) L 10/10/19 05:32 Hgb 9.3 g/dL (12.0-16.0) L 10/10/19 05:32 Hct 29.6 % (37-47) L 10/10/19 05:32 MCV 88.9 fL (80-100) 10/10/19 05:32 MCH 27.9 pg (25-34) 10/10/19 05:32 MCHC 31.4 g/dL (32-36) L 10/10/19 05:32 RDW Std Deviation 50.7 fL (36.4-46.3) H 10/10/19 05:32 RDW Coeff of Sada 15.5 % (11.5-14.5) H 10/10/19 05:32 Plt Count 244 K/uL (130-400) 10/10/19 05:32 MPV 9.8 fL (7.4-10.4) 10/10/19 05:32 Sodium 137 mmol/L (136-145) 10/10/19 05:32 Potassium 3.8 mmol/L (3.5-5.1) 10/10/19 05:32 Chloride 106 mmol/L (98-107) 10/10/19 05:32 Carbon Dioxide 26 mmol/L (21-32) 10/10/19 05:32 Anion Gap 6.0 (3-11) 10/10/19 05:32 BUN 13 mg/dl (7-18) 10/10/19 05:32 Creatinine 0.84 mg/dl (0.6-1.2) 10/10/19 05:32 Total Time Total Time Spent Total Time Spent (In Minutes): 5 Discharge Plan Discharge Items Patient Disposition: Home - Home Health Services Reason For Visit: Right Knee Osteoarthritis Discharge Diagnosis: Right Knee Osteoarthritis Activity: Per Instructions section Weightbearing: Right weightbearing Weightbearing Comment: as tolerated with walker Non-emergency contact: Surgeon Call non-emergency contact if: your pain is not controlled, your temperature is above 101.5, your wound has increased redness and your wound has increased drainage Follow-up/Referrals: Shawn Esparza III, MD [Primary Care Provider] - Diet: Carb Consistent or DM2 Addtl Attending Provider Instructions: PLEASE FOLLOW DR COELLO'S TOTAL KNEE ARTHROPLASTY INSTRUCTIONS. THESE WILL BE GIVEN TO YOU PRIOR TO YOUR DISCHARGE FROM THE HOSPITAL. YOUR MEDICATIONS HAVE BEEN CALLED IN TO YOUR PHARMACY BY DR COELLO'S OFFICE. PLEASE CALL THE OFFICE WITH ANY QUESTIONS. REMEMBER TO TAKE ASPIRIN 81MG TWICE A DAY FOR 1 MONTH. THIS IS YOUR BLOOD THINNER. Silverlon- This is a large adhesive bandage that contains silver ions. This helps your incision heal by fighting off bacteria and protecting it from the outside environment. You are permitted to shower with this dressing. This will remain on your incision for 7 days and then should be removed. Some visible blood or drainage through the dressing window is normal. If there is significant drainage or leaking noted before the 7 days notify your doctor's office immediately. Once removed, keep incision clean and dry. If there is any drainage or redness noted, please call your surgeon. Please change this in 7 days and apply a new one. FOLLOW UP WITH DR COELLO IN 2 WEEKS. PLEASE CALL FOR AN APPOINTMENT IF ONE HAS NOT ALREADY BEEN MADE. [phone] Stand-Alone Forms: My [facility], Opioid Pain Management, Smoking Cessation Medications and DC Order Prescriptions: New aspirin 81 mg Tablet,Delayed Release (Dr/Ec) 81 mg PO BID 30 Days Qty: 60 RF: 0 acetaminophen 500 mg Tablet 1,000 mg PO Q8 14 Days Qty: 84 RF: 0 Continued omeprazole 20 mg capsule,delayed release(DR/EC) 20 mg PO BID Qty: 180 RF: 3 dulaglutide 1.5 mg/0.5 mL pen injector 1.5 mg subcut WEEKLY Qty: 6 RF: 3 levothyroxine 125 mcg tablet 125 mcg PO QAM Qty: 90 RF: 3 cyanocobalamin (vitamin B-12) 500 mcg tablet,disintegrating 500 mcg SL QAM RF: 0 cholecalciferol (vitamin D3) 5,000 unit capsule 5,000 units PO QAM RF: 0 atorvastatin 20 mg tablet 20 mg PO HS RF: 0 meclizine 12.5 mg tablet 12.5 mg PO UD PRN (Reason: Vertigo) RF: 0 hydrochlorothiazide 12.5 mg capsule 12.5 mg PO QAM RF: 0 metformin 500 mg tablet extended release 24 hr 1,000 mg PO BID RF: 0 celecoxib [Celebrex] 200 mg Capsule 200 mg PO BID RF: 0 Discontinued Premarin 0.625 mg tablet 0.625 mg PO QAM Qty: 90 RF: 3 Tylenol 650 mg PO Q4 PRN (Reason: Pain) RF: 0 Discharge Orders: Discharge Order (Routine); Ordered 10/10/19 Ordered By: Salvador Hernadez/Other Patient Handouts: DVT Post Op Prevention Admission Data Admit Date/Time: 10/09/19 08:38 Attending Provider: Jonathan Coello Admit Provider: Jonathan Coello Primary Care Provider: Shawn Esparza III Other Providers: [facility],Home Healthcare Other Interventions: Discharge Summary Assessment (RN) Last Done: 10/10/19 12:49
== END 2019-10-10 14:25 | disposition home health service (06) | DRG 470 ==
LOC: ASU 05:06 → OBSVTOIN 08:38 → 3E 08:38 → INTOOBSV 08:38